=== PATIENT | female | born 1935 | race Hispanic/Latino ===

== ENCOUNTER 2020-08-29 13:28 | Inpatient (IN) | payer MEDICARE ==
[2020-08-29] MEDS ORDERED: MORPHINE 2 MG/1 ML INJ IV ONE (14:31)
--- NOTE | 2020-08-29 14:52 | Emergency Department Report ---
ED Lower Extremity HPI - General Stated Complaint: RT HIP PAIN/FALL Time Seen by Provider: 08/29/20 14:21 - History of Present Illness Initial Comments: 85-year-old female presents to ED with right hip pain. Patient states she was at the grocery store and was attempting to get a cart from one of the outside cart returns when she tripped over the silver plate on the ground landing on her right hip. Patient denies any numbness or tingling. She reports difficulty walking and bearing weight. MD Complaint: hip injury -: This afternoon Injury: Hip: Right Type of Injury: blunt Place: street/outdoors Severity: severe Improves With: immobilization Worsens With: weight bearing, movement, palpation Context: fall Associated Symptoms: unable to bear weight. denies: snap/pop sensation, numbness, tingling - Related Data Home Medications Medication Instructions Recorded Confirmed Last Taken Aspirin EC [Halfprin EC] 81 mg PO QDAY 08/05/13 08/29/20 Unknown Bimatoprost [Lumigan 0.01%] 1 drop OP QPM 08/05/13 08/29/20 Unknown Lisinopril [Zestril] 40 mg PO DAILY 08/05/13 08/29/20 Unknown Lovastatin [Altoprev] 20 mg PO QPM 08/05/13 08/29/20 Unknown Metoprolol [Lopressor] 100 mg PO DAILY 08/05/13 08/29/20 Unknown Metoprolol [Lopressor] 50 mg PO HS 09/12/13 08/29/20 Unknown hydroCHLOROthiazide [HCTZ] 25 mg PO DAILY 09/12/13 08/29/20 Unknown Rivaroxaban [Xarelto] 20 mg PO QDAY 08/29/20 08/29/20 Unknown Allergies Allergy/AdvReac Type Severity Reaction Status Date / Time No Known Allergies Allergy Unverified 08/05/13 13:50 ED Review of Systems ROS: Stated complaint: RT HIP PAIN/FALL Other details as noted in HPI Comment: All other systems reviewed and negative Musculoskeletal: as per HPI Neurological: denies: weakness, numbness, paresthesias ED Past Medical Hx - Past Medical History Hx Hypertension: Yes (2006 told to take metoprolol day of. On CBB and CHERYL-I) Hx Heart Attack/AMI: No (no reversible ischemia, and normal EF) Hx GERD: Yes (2003) Hx Liver Disease: No Hx Renal Disease: No Hx Arthritis: Yes - Social History Smoking Status: Never Smoker - Medications Home Medications: Home Medications Medication Instructions Recorded Confirmed Last Taken Type Aspirin EC [Halfprin EC] 81 mg PO QDAY 08/05/13 08/29/20 Unknown History Bimatoprost [Lumigan 0.01%] 1 drop OP QPM 08/05/13 08/29/20 Unknown History Lisinopril [Zestril] 40 mg PO DAILY 08/05/13 08/29/20 Unknown History Lovastatin [Altoprev] 20 mg PO QPM 08/05/13 08/29/20 Unknown History Metoprolol [Lopressor] 100 mg PO DAILY 08/05/13 08/29/20 Unknown History Metoprolol [Lopressor] 50 mg PO HS 09/12/13 08/29/20 Unknown History hydroCHLOROthiazide [HCTZ] 25 mg PO DAILY 09/12/13 08/29/20 Unknown History Rivaroxaban [Xarelto] 20 mg PO QDAY 08/29/20 08/29/20 Unknown History ED Physical Exam - General General appearance: alert, in no apparent distress - Head Head exam: Present: atraumatic, normocephalic - Eye Eye exam: Present: normal appearance, EOMI - ENT ENT exam: Present: mucous membranes moist - Neck Neck exam: Present: normal inspection - Respiratory Respiratory exam: Present: normal lung sounds bilaterally. Absent: respiratory distress - Cardiovascular Cardiovascular Exam: Present: regular rate, normal rhythm - GI/Abdominal GI/Abdominal exam: Present: soft. Absent: distended, tenderness - Extremities Exam Extremities exam: Present: other (Slight tenderness to right posterior hip; unable to flex hip or knee secondary to pain; sensation intact, able to move toes on right foot) - Neurological Exam Neurological exam: Present: alert, oriented X3 - Psychiatric Psychiatric exam: Present: normal affect, normal mood - Skin Skin exam: Present: warm, dry, intact, normal color ED Course Vital Signs 08/29/20 15:21 Respiratory 18 Rate O2 Sat by Pulse 100 Oximetry - Consultations Consultation #1: 08/29/20 15:[address] Swenson regarding patient's pubic rami fractures. States fractures are nonoperable. Will admit for physical therapy as patient is unable to bear weight. ED Lower Extremity MDM - Lab Data Result diagrams: 08/29/20 14:43 08/29/20 14:43 - Radiology Data Radiology results: report reviewed, image reviewed - Medical Decision Making 85-year-old female status post fall with right inferior and superior pubic rami fractures. Per Dr. Swenson, fractures are non-op. Patient is unable to bear weight secondary to pain. Patient will be admitted by Dr. Wolfe, hospitalist, for further evaluation. - Differential Diagnosis Hip fracture, contusion Critical care attestation.: If time is entered above; I have spent that time in minutes in the direct care of this critically ill patient, excluding procedure time. ED Disposition Clinical Impression: Fracture of superior ramus of right pubis, Fracture of right inferior pubic ramus Disposition: DC-09 OP ADMIT IP TO THIS HOSP Is pt being admited?: Yes Condition: Stable Time of Disposition: 15:58
[2020-08-29 15:10] LABS: Basophils % (Auto) 0.2 % (0.0-1.8); Eosinophils # (Auto) 0.1 K/mm3 (0.0-0.4); Eosinophils % (Auto) 0.7 % (0.0-4.3); Hematocrit 36.5 % (30.3-42.9); Hemoglobin 12.1 gm/dl (10.1-14.3); Lymphocytes # (Auto) 0.8 K/mm3 (1.2-5.4); Lymphocytes % (Auto) 5.1 % (13.4-35.0); Mean Corpuscular HGB Conc 33 % (30-34); Mean Corpuscular Volume 90 fl (79-97); Monocytes # (Auto) 0.8 K/mm3 (0.0-0.8); Platelet Count 254 K/mm3 (140-440); Red Blood Count 4.04 M/mm3 (3.65-5.03); Red Cell Distribution Width 15.7 % (13.2-15.2)
--- NOTE | 2020-08-29 15:19 | XRay Report ---
Right hip-2 views INDICATION: fall, pain. COMPARISON: None. IMPRESSION: Comminuted right-sided superior and inferior pubic rami fractures with surrounding soft tissue swelling. Mild underlying degenerative changes in both hips and at the pubic symphysis. Signer Name: Samuel Sage MD Signed: 08/29/2020 3:15 PM Workstation Name: [id number]
[2020-08-29 15:25] LABS: INR 1.57 (0.87-1.13)
[2020-08-29 15:26] LABS: Partial Thromboplastin Time 36.9 Sec. (24.2-36.6)
[2020-08-29 15:40] LABS: Blood Urea Nitrogen 20 mg/dL (7-17); Hemolysis Index 17
--- NOTE | 2020-08-29 15:57 | History and Physical Report ---
History of Present Illness Chief complaint: I fell down and hurt my hip History of present illness: 85 YO Female with HTN, GERD, [place], OA, Paroxysmal Atrial Fib on Therapeutic Anticoagulation with Xarelto and rate control with Metoprolol presents to ED for evaluation. Patient reported "I fell down and hurt my hip". Patient states that she was in her usual state of health and was ambulating independently while at the grocery store. Patient states that while attempting to get a shopping cart she accidentally tripped over a plate on the ground and landed on her right hip. Patient states that she experienced sudden pain in her right side and was unable to stand due to pain. Patient transported to [facility] via private vehicle for further care and evaluation of the aforementioned symptoms. The patient was seen and evaluated in the emergency department. All lab and imaging studies reviewed. Patient underwent pelvic x-ray and was found to have both superior and inferior pubic rami fractures, systemic inflammatory response syndrome, uncontrolled pain, as well as inability to bear weight on bilateral lower extr emities. Patient admitted to surgical floor. Orthopedic surgery service consulted in the emergency department. Patient denies fever, chills, chest pain, palpitation, productive cough, skin rash, recent ill contacts, dizziness, syncope, or known exposure to COVID-19. No prior admission for review. All medication listed at time of admission has been reconciled. Advanced care planning conducted in ED. Past History Past Medical History: atrial fib, arthritis, GERD, hypertension Past Surgical History: No surgical history, Other (Reviewed) Social history: . denies: smoking, alcohol abuse, prescription drug abuse Family history: hypertension Medications and Allergies Allergies Allergy/AdvReac Type Severity Reaction Status Date / Time No Known Allergies Allergy Unverified 08/05/13 13:50 Home Medications Medication Instructions Recorded Confirmed Last Taken Type Aspirin EC [Halfprin EC] 81 mg PO QDAY 08/05/13 08/29/20 Unknown History Bimatoprost [Lumigan 0.01%] 1 drop OP QPM 08/05/13 08/29/20 Unknown History Lisinopril [Zestril] 40 mg PO DAILY 08/05/13 08/29/20 Unknown History Lovastatin [Altoprev] 20 mg PO QPM 08/05/13 08/29/20 Unknown History Metoprolol [Lopressor] 100 mg PO DAILY 08/05/13 08/29/20 Unknown History Metoprolol [Lopressor] 50 mg PO HS 09/12/13 08/29/20 Unknown History hydroCHLOROthiazide [HCTZ] 25 mg PO DAILY 09/12/13 08/29/20 Unknown History Rivaroxaban [Xarelto] 20 mg PO QDAY 08/29/20 08/29/20 Unknown History Review of Systems Constitutional: no weight loss, no weight gain, no fever, no chills Ears, nose, mouth and throat: no ear pain, no tinnitis, no nasal discharge, no sinus pressure Breasts: no change in shape, no swelling, no mass Cardiovascular: no chest pain, no orthopnea, no palpitations, no rapid/irregular heart beat, no syncope, no lightheadedness, no shortness of breath, no dyspnea on exertion, no paroxysmal nocturnal dyspnea, no claudication, no phlebitis, no leg edema Respiratory: no cough, no cough with sputum, no excessive sputum, no hemoptysis, no shortness of breath Gastrointestinal: no abdominal pain, no nausea, no vomiting, no diarrhea, no constipation, no hematemesis Genitourinary Female: no pelvic pain, no flank pain, no dysuria, no urinary frequency, no urgency Rectal: no pain, no incontinence, no bleeding Musculoskeletal: no neck stiffness, no neck pain, no shooting arm pain, no arm numbness/tingling Integumentary: no rash, no redness, no wounds, no boils Neurological: no head injury, no transient paralysis, no paralysis, no weakness, no parathesias, no tingling, no seizures, no syncope Psychiatric: no anxiety, no memory loss, no sleep disturbances, no insomnia, no change in appetite, no change in libido Endocrine: no cold intolerance, no heat intolerance, no excessive thirst, no polyuria, no nocturia, no excessive sweating, no flushing Hematologic/Lymphatic: no easy bruising, no easy bleeding, no lymphedema Allergic/Immunologic: no urticaria, no persistent infections Exam - Constitutional Vitals: Temp Pulse Resp BP Pulse Ox 18 100 08/29/20 15:21 08/29/20 15:21 General appearance: Present: mild distress - EENT Eyes: Present: PERRL ENT: hearing intact, clear oral mucosa - Neck Neck: Present: supple, normal ROM - Respiratory Respiratory effort: normal Respiratory: bilateral: CTA - Cardiovascular Heart Sounds: Present: S1 & S2. Absent: rub, click - Extremities Extremities: pulses symmetrical, No edema Peripheral Pulses: within normal limits - Abdominal General gastrointestinal: Present: soft, non-tender, non-distended, normal bowel sounds Female genitourinary: Present: normal - Integumentary Integumentary: Present: clear, warm, dry - Musculoskeletal Musculoskeletal: strength equal bilaterally, other (Pain with pelvic mobility, lower extremity movement) - Psychiatric Psychiatric: appropriate mood/affect, intact judgment & insight - Neurologic Neurologic: CNII-XII intact, moves all extremities Results - Labs CBC & Chem 7: 08/29/20 14:43 08/29/20 14:43 Labs: Abnormal lab results 08/29/20 08/29/20 08/29/20 Range/Units 14:43 14:43 14:43 WBC 16.3 H (4.5-11.0) K/mm3 RDW 15.7 H (13.2-15.2) % Lymph % (Auto) 5.1 L (13.4-35.0) % Lymph # (Auto) 0.8 L (1.2-5.4) K/mm3 Seg Neutrophils % 89.0 H (40.0-70.0) % Seg Neutrophils # 14.5 H (1.8-7.7) K/mm3 PT 19.2 H (12.2-14.9) Sec. INR 1.57 H (0.87-1.13) APTT 36.9 H (24.2-36.6) Sec. Chloride 95.9 L (98-107) mmol/L BUN 20 H (7-17) mg/dL Glucose 107 H (65-100) mg/dL Assessment and Plan - Patient Problems (1) Fracture of right inferior pubic ramus Current Visit: Yes Status: Acute Qualifiers: Encounter type: initial encounter Plan to address problem: Orthopedic surgery service consulted, pain control, supportive care, further care as per orthopedic surgery team (2) Fracture of superior ramus of right pubis Current Visit: Yes Status: Acute Qualifiers: Encounter type: initial encounter Plan to address problem: Orthopedic surgery service consulted, pain control, supportive care, further care as per orthopedic surgery team (3) Debility Current Visit: Yes Status: Acute Plan to address problem: Physical therapy consulted, pain control, supportive care (4) Uncontrolled pain Current Visit: Yes Status: Acute Plan to address problem: Pain control as per pain protocol, nursing assessment as per routine. (5) Paroxysmal atrial fibrillation Current Visit: Yes Status: Acute Plan to address problem: Continue therapeutic anticoagulation, continue rate control, supportive care. Remote telemetry. (6) DVT prophylaxis Current Visit: Yes Status: Acute Plan to address problem: SCD to bilateral lower extremities while in bed, patient is nonambulatory, c ontinue therapeutic anticoagulation (7) Advance care planning Current Visit: Yes Status: Acute Plan to address problem: Disease education conducted, care plan discussed, diagnosis discussed, prognosis discussed, patient knowledges understanding and agree with care plan, +30 minutes.
[2020-08-29] MEDS ORDERED: ACETAMINOPHEN 325 MG TAB PO PRN (16:01)
[2020-08-29] MEDS ORDERED: ALBUTEROL 2.5 MG/3 ML NEBU IH PRN (16:01)
[2020-08-29 16:19] LABS: Calcium 8.8 mg/dL (8.4-10.2)
[2020-08-29 16:21] LABS: BUN/Creatinine Ratio 29
[2020-08-29] MEDS ORDERED: SODIUM CHLORIDE 0.9% 1000 ML 1,000 ML IV SCH (17:15)
[2020-08-29] MEDS ORDERED: LATANOPROST 0.005% OPHTH SOLN 2.5 ML OU SCH (18:00)
[2020-08-29] MEDS ORDERED: NON-FORMULARY EACH (Bimatoprost [Lumigan 0.01%] 5 ML Drops) OP SCH (18:00)
[2020-08-29] MEDS ORDERED: NON-FORMULARY EACH (Lovastatin [Altoprev] 20 MG Tab.Er.24h) PO SCH (18:00)
[2020-08-29 18:58] LABS: Bilirubin,Urine NEG (Negative); Blood,Urine NEG (Negative); Color,Urine Yellow (Yellow); Protein,Urine <15 mg/dL mg/dL (Negative); Urobilinogen,Urine < 2.0 mg/dL (<2.0)
[2020-08-29] MEDS ORDERED: cefTRIAXone/NS 2 GM/100 ML 2 GM/100 ML BAG IV ONE (20:35)
[2020-08-29] MEDS ORDERED: METOPROLOL TARTRATE 50 MG TAB PO SCH (22:00)
[2020-08-29] MEDS: PRAVASTATIN 20 MG TAB PO SCH (22:03)
[2020-08-29] MEDS: oxyCODONE /ACETAMINOPHEN 5-325MG TAB PO PRN (22:03)
[2020-08-30 07:41] LABS: Basophils # (Auto) 0.1 K/mm3 (0.0-0.1); Basophils % (Auto) 0.4 % (0.0-1.8); Eosinophils # (Auto) 0.2 K/mm3 (0.0-0.4); Eosinophils % (Auto) 1.5 % (0.0-4.3); Hematocrit 32.5 % (30.3-42.9); Hemoglobin 10.7 gm/dl (10.1-14.3); Lymphocytes # (Auto) 0.9 K/mm3 (1.2-5.4); Mean Corpuscular HGB Conc 33 % (30-34); Mean Corpuscular Volume 89 fl (79-97); Monocytes # (Auto) 0.9 K/mm3 (0.0-0.8); Platelet Count 243 K/mm3 (140-440); Red Blood Count 3.67 M/mm3 (3.65-5.03); Red Cell Distribution Width 15.5 % (13.2-15.2)
[2020-08-30 08:03] LABS: Blood Urea Nitrogen 18 mg/dL (7-17); Calcium 8.3 mg/dL (8.4-10.2); Hemolysis Index 7
[2020-08-30 08:04] LABS: BUN/Creatinine Ratio 30
[2020-08-30] MEDS: hydroCHLOROthiazide 25 MG TAB PO SCH (09:01)
[2020-08-30] MEDS: ASPIRIN EC 81 MG TAB PO SCH (09:01)
[2020-08-30] MEDS: LISINOPRIL 40 MG TAB PO SCH (09:02)
[2020-08-30] MEDS: METOPROLOL SUCCINATE XL 50 MG TAB PO SCH (09:02)
[2020-08-30] MEDS ORDERED: NON-FORMULARY EACH (Rivaroxaban 20 MG Tablet) PO SCH (10:00)
[2020-08-30] MEDS ORDERED: METOPROLOL TARTRATE 100 MG TAB PO SCH (10:00)
[2020-08-30] MEDS: RIVAROXABAN 20 MG TAB PO SCH (11:26)
[2020-08-30] MEDS ORDERED: hydrALAZINE 20 MG/1 ML INJ IV ONE (13:00)
[2020-08-30] MEDS: oxyCODONE /ACETAMINOPHEN 5-325MG TAB PO PRN ×2 (13:22→20:17)
[2020-08-30] MEDS: ONDANSETRON 4 MG/2 ML INJ IV PRN (13:22)
--- NOTE | 2020-08-30 16:35 | Progress Note ---
Assessment and Plan - Patient Problems (1) Fracture of right inferior pubic ramus Current Visit: Yes Status: Acute Qualifiers: Encounter type: initial encounter Plan to address problem: Orthopedic surgery service consulted, pain control, supportive care, further care as per orthopedic surgery team (2) Fracture of superior ramus of right pubis Current Visit: Yes Status: Acute Qualifiers: Encounter type: initial encounter Plan to address problem: Orthopedic surgery service consulted, pain control, supportive care, further care as per orthopedic surgery team (3) Debility Current Visit: Yes Status: Acute Plan to address problem: Physical therapy consulted, pain control, supportive care (4) Uncontrolled pain Current Visit: Yes Status: Acute Plan to address problem: Pain control as per pain protocol, nursing assessment as per routine. (5) Paroxysmal atrial fibrillation Current Visit: Yes Status: Acute Plan to address problem: Continue therapeutic anticoagulation, continue rate control, supportive care. Remote telemetry. (6) DVT prophylaxis Current Visit: Yes Status: Acute Plan to address problem: SCD to bilateral lower extremities while in bed, patient is nonambulatory, continue therapeutic anticoagulation (7) Advance care planning Current Visit: Yes Status: Acute Plan to address problem: Disease education conducted, care plan discussed, diagnosis discussed, prognosis discussed, patient knowledges understanding and agree with care plan, +30 minutes. Subjective Date of service: 08/30/20 Principal diagnosis: Rt Hip fx Interval history: 85 YO Female with HTN, GERD, [place], OA, Paroxysmal Atrial Fib on Therapeutic Anticoagulation with Xarelto and rate control with Metoprolol presents to ED for evaluation. Patient reported "I fell down and hurt my hip". Patient states that she was in her usual state of health and was ambulating independently while at the grocery store. Patient states that while attempting to get a shopping cart she accidentally tripped over a plate on the ground and landed on her right hip. Patient states that she experienced sudden pain in her right side and was unable to stand due to pain. Patient transported to [facility] via private vehicle for further care and evaluation of the aforementioned symptoms. The patient was seen and evaluated in the emergency department. All lab and imaging studies reviewed. Patient underwent pelvic x-ray and was found to have both superior and inferior pubic rami fractures, systemic inflammatory response syndrome, uncontrolled pain, as well as inability to bear weight on bilateral lower extremities. Patient admitted to surgical floor. Orthopedic surgery service consulted in the emergency department. Patient denies fever, chills, chest pain, palpitation, productive cough, skin rash, recent ill contacts, dizziness, syncope, or known exposure to COVID-19. No prior admission for review. All medication listed at time of admission has been reconciled. Advanced care planning conducted in ED. 08/30/20 Pain Rt hip Son at bedside Updated him about mothers condition Objective - Constitutional Vitals: Vital Signs - 12hr 08/30/20 08/30/20 08/30/20 04:58 07:06 08:54 Temperature 97.9 F 97.7 F Pulse Rate 77 121 H Respiratory 18 16 Rate Blood Pressure 154/76 175/79 O2 Sat by Pulse 93 94 96 Oximetry 08/30/20 08/30/20 08/30/20 09:02 11:55 12:36 Temperature 97.9 F Pulse Rate 121 H 108 H 108 H Respiratory 16 Rate Blood Pressure 175/79 183/103 183/103 O2 Sat by Pulse 90 Oximetry General appearance: Present: no acute distress, well-nourished - EENT Eyes: PERRL, EOM intact ENT: hearing intact, clear oral mucosa Ears: bilateral: normal - Neck Neck: supple, normal ROM - Respiratory Respiratory effort: normal Respiratory: bilateral: CTA - Breasts Breasts: normal - Cardiovascular Heart rate: 78 Rhythm: regular Heart Sounds: Present: S1 & S2. Absent: gallop, rub Extremities: pulses intact, No edema, normal color, Full ROM, abnormal (Decreased ROM at rt Hip) - Gastrointestinal General gastrointestinal: Present: soft, non-tender, non-distended, normal bowel sounds - Genitourinary Female genitourinary: normal - Integumentary Integumentary: clear, warm, dry - Musculoskeletal Musculoskeletal: 1, strength equal bilaterally - Neurologic Neurologic: moves all extremities - Psychiatric Psychiatric: memory intact, appropriate mood/affect, intact judgment & insight - Labs CBC & Chem 7: 08/30/20 06:24 08/30/20 06:24 Labs: Abnormal lab results 08/30/20 08/30/20 Range/Units 06:24 06:24 WBC 13.5 H (4.5-11.0) K/mm3 RDW 15.5 H (13.2-15.2) % Lymph % (Auto) 7.0 L (13.4-35.0) % Lymph # (Auto) 0.9 L (1.2-5.4) K/mm3 [place] # (Auto) 0.9 H (0.0-0.8) K/mm3 Seg Neutrophils % 84.1 H (40.0-70.0) % Seg Neutrophils # 11.3 H (1.8-7.7) K/mm3 Sodium 136 L (137-145) mmol/L Chloride 95.6 L (98-107) mmol/L BUN 18 H (7-17) mg/dL Calcium 8.3 L (8.4-10.2) mg/dL
[2020-08-30] MEDS: LATANOPROST 0.005% OPHTH SOLN 2.5 ML OU SCH (20:18)
[2020-08-30] MEDS: PRAVASTATIN 20 MG TAB PO SCH (21:47)
[2020-08-31] MEDS: oxyCODONE /ACETAMINOPHEN 5-325MG TAB PO PRN (02:03)
[2020-08-31] MEDS: RIVAROXABAN 20 MG TAB PO SCH (10:38)
[2020-08-31] MEDS: LISINOPRIL 40 MG TAB PO SCH (10:39)
[2020-08-31] MEDS: hydroCHLOROthiazide 25 MG TAB PO SCH (10:40)
[2020-08-31] MEDS: ASPIRIN EC 81 MG TAB PO SCH (10:40)
[2020-08-31] MEDS: METOPROLOL SUCCINATE XL 50 MG TAB PO SCH (11:39)
[2020-08-31] MEDS: HYDROmorphone 1 MG/1 ML INJ IV PRN ×2 (14:41→21:55)
--- NOTE | 2020-08-31 17:07 | Consultation ---
History of Present Illness - [facility] Consult date: 08/31/20 Consult reason: fracture History of present illness: 85-year-old female presented to the ED with right hip pain 08/29/20. Patient states she was at the grocery store and was attempting to get a cart from one of the outside cart returns when she tripped over the silver plate on the ground landing on her right hip. Patient denies any numbness or tingling. She reports difficulty walking and bearing weight. plain xrays taken in the ED revealed right pubic rami fractures... Past History Past Medical History: atrial fib, arthritis, GERD, hypertension Past Surgical History: No surgical history, Other (Reviewed) Social history: . denies: smoking, alcohol abuse, prescription drug abuse Family history: hypertension Medications and Allergies Allergies Allergy/AdvReac Type Severity Reaction Status Date / Time No Known Allergies Allergy Unverified 08/05/13 13:50 Home Medications Medication Instructions Recorded Confirmed Last Taken Type Aspirin EC [Halfprin EC] 81 mg PO QDAY 08/05/13 08/29/20 Unknown History Bimatoprost [Lumigan 0.01%] 1 drop OP QPM 08/05/13 08/29/20 Unknown History Lisinopril [Zestril] 40 mg PO DAILY 08/05/13 08/29/20 Unknown History Lovastatin [Altoprev] 20 mg PO QPM 08/05/13 08/29/20 Unknown History Metoprolol [Lopressor] 100 mg PO DAILY 08/05/13 08/29/20 Unknown History Metoprolol [Lopressor] 50 mg PO HS 09/12/13 08/29/20 Unknown History hydroCHLOROthiazide [HCTZ] 25 mg PO DAILY 09/12/13 08/29/20 Unknown History Rivaroxaban [Xarelto] 20 mg PO QDAY 08/29/20 08/29/20 Unknown History Active Meds: Active Medications Acetaminophen (Acetaminophen 325 Mg Tab) 650 mg PO Q4H PRN PRN Reason: Pain MILD(1-3)/Fever >100.5/MCKEON Albuterol (Albuterol 2.5 Mg/3 Ml Nebu) 2.5 mg IH Q4HRT PRN PRN Reason: Shortness Of Breath Aspirin (Aspirin Ec 81 Mg Tab) 81 mg PO QDAY [facility] Last Admin: 08/31/20 10:40 Dose: 81 mg Documented by: Hydrochlorothiazide (Hydrochlorothiazide 25 Mg Tab) 25 mg PO DAILY [facility] Last Admin: 08/31/20 10:40 Dose: 25 mg Documented by: Hydromorphone HCl (Hydromorphone 1 Mg/1 Ml Inj) 0.5 mg IV Q3H PRN PRN Reason: Pain , Severe (7-10) Last Admin: 08/31/20 14:41 Dose: 0.5 mg Documented by: Sodium Chloride (Nacl 0.9% 1000 Ml) 1,000 mls @ 42 mls/hr IV DIRECT [facility] Last Admin: 08/30/20 10:58 Dose: 42 mls/hr Documented by: Latanoprost (Latanoprost 0.005% Ophth Soln 2.5 Ml) 1 drops OU 2000 [facility] Last Admin: 08/30/20 20:18 Dose: 1 drops Documented by: Lisinopril (Lisinopril 40 Mg Tab) 40 mg PO DAILY [facility] Last Admin: 08/31/20 10:39 Dose: 40 mg Documented by: Metoprolol Succinate (Metoprolol Succinate Xl 50 Mg Tab) 50 mg PO QDAY [facility] Last Admin: 08/31/20 11:39 Dose: 50 mg Documented by: Ondansetron HCl (Ondansetron 4 Mg/2 Ml Inj) 4 mg IV Q8H PRN PRN Reason: Nausea And Vomiting Last Admin: 08/30/20 13:22 Dose: 4 mg Documented by: Oxycodone/Acetaminophen (Oxycodone /Acetaminophen 5-325mg Tab) 1 tab PO Q6H PRN PRN Reason: Pain, Moderate (4-6) Last Admin: 08/31/20 02:03 Dose: 1 tab Documented by: Pravastatin Sodium (Pravastatin 20 Mg Tab) 20 mg PO QHS [facility] Last Admin: 08/30/20 21:47 Dose: 20 mg Documented by: Rivaroxaban (Rivaroxaban 20 Mg Tab) 20 mg PO QDAY [facility] Last Admin: 08/31/20 10:38 Dose: 20 mg Documented by: Sodium Chloride (Sodium Chloride 0.9% 10 Ml Flush Syringe) 10 ml IV BID [facility] Last Admin: 08/31/20 14:40 Dose: 10 ml Documented by: Sodium Chloride (Sodium Chloride 0.9% 10 Ml Flush Syringe) 10 ml IV PRN PRN PRN Reason: LINE FLUSH Physical Examination - Physical exam Narrative exam: pelvis- tender at right groin, decreased active RoM, no limb length shortening noted Assessment and Plan stable pelvic fracture PT for gait training
[2020-08-31] MEDS: PRAVASTATIN 20 MG TAB PO SCH (22:00)
[2020-08-31] MEDS: LATANOPROST 0.005% OPHTH SOLN 2.5 ML OU SCH (22:03)
--- NOTE | 2020-09-01 02:28 | Progress Note ---
Assessment and Plan - Patient Problems (1) Rt Pelvic Fracture/right inferior pubic ramus Current Visit: Yes Status: Acute Qualifiers: Encounter type: initial encounter Plan to address problem: Orthopedic surgery consult appreciated stable pelvic fracture Gait training (2) Fracture of superior ramus of right pubis Current Visit: Yes Status: Acute Qualifiers: Encounter type: initial encounter Plan to address problem: Orthopedic surgery consult appreciated stable pelvic fracture Gait training (3) Debility Current Visit: Yes Status: Acute Plan to address problem: Physical therapy consulted, pain control, supportive care (4) Uncontrolled pain Current Visit: Yes Status: Acute Plan to address problem: Pain control as per pain protocol, nursing assessment as per routine. (5) Paroxysmal atrial fibrillation Current Visit: Yes Status: Acute Plan to address problem: Continue therapeutic anticoagulation, continue rate control, supportive care. Remote telemetry. (6) DVT prophylaxis Current Visit: Yes Status: Acute Plan to address problem: SCD to bilateral lower extremities while in bed, patient is nonambulatory, continue therapeutic anticoagulation (7) Advance care planning Current Visit: Yes Status: Acute Plan to address problem: Disease education conducted, care plan discussed, diagnosis discussed, prognosis discussed, patient knowledges understanding and agree with care plan, +30 minutes. Discharge home when Ortho clears Subjective Date of service: 08/31/20 Principal diagnosis: pelvic fracture Interval history: 85 YO Female with HTN, GERD, MA, OA, Paroxysmal Atrial Fib on Therapeutic Anticoagulation with Xarelto and rate control with Metoprolol presents to ED for evaluation. Patient reported "I fell down and hurt my hip". Patient states that she was in her usual state of health and was ambulating independently while at the grocery store. Patient states that while attempting to get a shopping cart she accidentally tripped over a plate on the ground and landed on her right hip. Patient states that she experienced sudden pain in her right side and was unable to stand due to pain. Patient transported to [facility] via private vehicle for further care and evaluation of the aforementioned symptoms. The patient was seen and evaluated in the emergency department. All lab and imaging studies reviewed. Patient underwent pelvic x-ray and was found to have both superior and inferior pubic rami fractures, systemic inflammatory response syndrome, uncontrolled pain, as well as inability to bear weight on bilateral lower extremities. Patient admitted to surgical floor. Orthopedic surgery service c onsulted in the emergency department. Patient denies fever, chills, chest pain, palpitation, productive cough, skin rash, recent ill contacts, dizziness, syncope, or known exposure to COVID-19. No prior admission for review. All medication listed at time of admission has been reconciled. Advanced care planning conducted in ED. 08/30/20 Pain Rt hip Son at bedside Updated him about mothers condition 08/31/20 Pain Rt Hip decreased ROM Objective - Constitutional Vitals: Vital Signs - 12hr 08/31/20 08/31/20 08/31/20 16:37 19:23 23:50 Temperature 98.5 F 98.5 F 98.3 F Pulse Rate 113 H 99 H 87 Respiratory 18 16 16 Rate Blood Pressure 128/57 149/74 135/78 O2 Sat by Pulse 91 94 92 Oximetry General appearance: Present: no acute distress, well-nourished - EENT Eyes: PERRL, EOM intact ENT: hearing intact, clear oral mucosa Ears: bilateral: normal - Neck Neck: supple, normal ROM - Respiratory Respiratory effort: normal Respiratory: bilateral: CTA - Breasts Breasts: normal - Cardiovascular Rhythm: regular Heart Sounds: Present: S1 & S2. Absent: gallop, rub Extremities: pulses intact, No edema, normal color, Full ROM, abnormal (Decreased ROM at Rt hip) Extremity abnormal: other (Drcreased ROM at Rt Hip) - Gastrointestinal General gastrointestinal: Present: soft, non-tender, non-distended, normal bowel sounds - Genitourinary Female genitourinary: normal - Integumentary Integumentary: clear, warm, dry - Musculoskeletal Musculoskeletal: 1, strength equal bilaterally - Neurologic Neurologic: moves all extremities - Psychiatric Psychiatric: memory intact, appropriate mood/affect, intact judgment & insight - Labs CBC & Chem 7: 08/30/20 06:24 08/30/20 06:24
[2020-09-01] MEDS: HYDROmorphone 1 MG/1 ML INJ IV PRN ×2 (04:02→21:25)
[2020-09-01] MEDS: oxyCODONE /ACETAMINOPHEN 5-325MG TAB PO PRN (11:11)
[2020-09-01] MEDS: METOPROLOL SUCCINATE XL 50 MG TAB PO SCH (11:11)
[2020-09-01] MEDS: LISINOPRIL 40 MG TAB PO SCH (11:12)
[2020-09-01] MEDS: ASPIRIN EC 81 MG TAB PO SCH (11:12)
[2020-09-01] MEDS: hydroCHLOROthiazide 25 MG TAB PO SCH (11:13)
[2020-09-01] MEDS: RIVAROXABAN 20 MG TAB PO SCH (12:15)
--- NOTE | 2020-09-01 13:22 | Progress Note ---
Assessment and Plan Assessment and plan: -- Rt Pelvic Fracture/right inferior pubic ramus Current Visit: Yes Status: Acute Orthopedic surgery evaluation noted and appreciated stable pelvic fracture, no surgical intervention PT and gait training --Fracture of superior ramus of right pubis Current Visit: Yes Status: Acute stable pelvic fracture, Gait training and PT Ortho evaluated Ortho evaluated, no intervention needed --General debility Current Visit: Yes Status: Acute Advanced age , fall fracture bilateral right pubic rami Pain management , PT , gait training , Ortho evaluated --Uncontrolled pain Current Visit: Yes Status: Acute Pain control as per pain protocol, nursing assessment as per routine. -- Paroxysmal atrial fibrillation Current Visit: Yes Status: Acute Continue therapeutic anticoagulation, High risk with recurrent falls, check with cardiology if needed -- DVT prophylaxis Current Visit: Yes Status: Acute . Patient is on Eliquis --Full CODE STATUS ; --Advance care planning Current Visit: Yes Status: Acute . Plan of care reviewed with the patient, and her nurse, I discussed with patient's [id number] PT recommend acute rehab placement. [place] acute rehab placement consultation Closely monitor the patient and adjust the management as needed History Interval history: I seen and examined the patient at the bedside Patient's chart and medications reviewed Patient complains of some pain Vital signs reviewed Hospitalist Physical - Constitutional Vitals: Temp Pulse Resp BP Pulse Ox 98.4 F 120 H 18 156/69 93 09/01/20 11:23 09/01/20 11:23 09/01/20 11:23 09/01/20 11:23 09/01/20 11:23 General appearance: Present: no acute distress, well-nourished - EENT Eyes: Present: PERRL, EOM intact - Neck Neck: Present: supple, normal ROM - Respiratory Respiratory effort: normal Respiratory: bilateral: diminished, negative: rales, rhonchi, wheezing - Cardiovascular Rhythm: regular Heart Sounds: Present: S1 & S2 - Extremities Extremities: no ischemia, No edema - Abdominal General gastrointestinal: soft, non-tender, non-distended, normal bowel sounds - Integumentary Integumentary: Present: clear, warm - Psychiatric Psychiatric: appropriate mood/affect, cooperative - Neurologic Neurologic: CNII-XII intact, moves all extremities Results - Labs CBC & Chem 7: 08/30/20 06:24 08/30/20 06:24 Labs: Laboratory Last Values WBC 13.5 K/mm3 (4.5-11.0) H 08/30/20 06:24 RBC 3.67 M/mm3 (3.65-5.03) 08/30/20 06:24 Hgb 10.7 gm/dl (10.1-14.3) 08/30/20 06:24 Hct 32.5 % (30.3-42.9) 08/30/20 06:24 MCV 89 fl (79-97) 08/30/20 06:24 MCH 29 pg (28-32) 08/30/20 06:24 MCHC 33 % (30-34) 08/30/20 06:24 RDW 15.5 % (13.2-15.2) H 08/30/20 06:24 Plt Count 243 K/mm3 (140-440) 08/30/20 06:24 Lymph % (Auto) 7.0 % (13.4-35.0) L 08/30/20 06:24 [place] % (Auto) 7.0 % (0.0-7.3) 08/30/20 06:24 Eos % (Auto) 1.5 % (0.0-4.3) 08/30/20 06:24 Baso % (Auto) 0.4 % (0.0-1.8) 08/30/20 06:24 Lymph # (Auto) 0.9 K/mm3 (1.2-5.4) L 08/30/20 06:24 [place] # (Auto) 0.9 K/mm3 (0.0-0.8) H 08/30/20 06:24 Eos # (Auto) 0.2 K/mm3 (0.0-0.4) 08/30/20 06:24 Baso # (Auto) 0.1 K/mm3 (0.0-0.1) 08/30/20 06:24 Seg Neutrophils % 84.1 % (40.0-70.0) H 08/30/20 06:24 Seg Neutrophils # 11.3 K/mm3 (1.8-7.7) H 08/30/20 06:24 PT 19.2 Sec. (12.2-14.9) H 08/29/20 14:43 INR 1.57 (0.87-1.13) H 08/29/20 14:43 APTT 36.9 Sec. (24.2-36.6) H 08/29/20 14:43 Sodium 136 mmol/L (137-145) L 08/30/20 06:24 Potassium 4.1 mmol/L (3.6-5.0) 08/30/20 06:24 Chloride 95.6 mmol/L (98-107) L 08/30/20 06:24 Carbon Dioxide 30 mmol/L (22-30) 08/30/20 06:24 Anion Gap 15 mmol/L 08/30/20 06:24 BUN 18 mg/dL (7-17) H 08/30/20 06:24 Creatinine 0.6 mg/dL (0.6-1.2) 08/30/20 06:24 Estimated GFR > 60 ml/min 08/30/20 06:24 BUN/Creatinine Ratio 30 % 08/30/20 06:24 Glucose 100 mg/dL (65-100) 08/30/20 06:24 Calcium 8.3 mg/dL (8.4-10.2) L 08/30/20 06:24 Urine Color Yellow (Yellow) 08/29/20 Unknown Urine Turbidity Clear (Clear) 08/29/20 Unknown Urine pH 6.0 (5.0-7.0) 08/29/20 Unknown Ur Specific [place] 1.014 (1.003-1.030) 08/29/20 Unknown Urine Protein <15 mg/dl mg/dL (Negative) 08/29/20 Unknown Urine Glucose (UA) Neg mg/dL (Negative) 08/29/20 Unknown Urine Ketones Tr mg/dL (Negative) 08/29/20 Unknown Urine Blood Neg (Negative) 08/29/20 Unknown Urine Nitrite Pos (Negative) 08/29/20 Unknown Urine Bilirubin Neg (Negative) 08/29/20 Unknown Urine Urobilinogen < 2.0 mg/dL (<2.0) 08/29/20 Unknown Ur Leukocyte Esterase Neg (Negative) 08/29/20 Unknown Urine WBC (Auto) 2.0 /HPF (0.0-6.0) 08/29/20 Unknown Urine RBC (Auto) 2.0 /HPF (0.0-6.0) 08/29/20 Unknown U Epithel Cells (Auto) 1.0 /HPF (0-13.0) 08/29/20 Unknown Lozano/IV: Voiding Method External Female Catheter Active Medications - Current Medications Current Medications: Generic Name Dose Route Start Last Admin Trade Name Freq PRN Reason Stop Dose Admin Acetaminophen 650 mg 08/29/20 16:01 Acetaminophen 325 Mg Tab PO Q4H PRN Pain MILD(1-3)/Fever >100.5/MCKEON Albuterol 2.5 mg 08/29/20 16:01 Albuterol 2.5 Mg/3 Ml Nebu IH Q4HRT PRN Shortness Of Breath Aspirin 81 mg 08/30/20 10:00 09/01/20 11:12 Aspirin Ec 81 Mg Tab PO 81 mg QDAY MAGNUS Administration Hydrochlorothiazide 25 mg 08/30/20 10:00 09/01/20 11:13 Hydrochlorothiazide 25 Mg Tab PO 25 mg DAILY MAGNUS Administration Hydromorphone HCl 0.5 mg 08/29/20 16:01 09/01/20 04:02 Hydromorphone 1 Mg/1 Ml Inj IV 0.5 mg Q3H PRN Administration Pain , Severe (7-10) Sodium Chloride 1,000 mls @ 42 mls/hr 08/29/20 17:15 08/30/20 10:58 Nacl 0.9% 1000 Ml IV 42 mls/hr DIRECT MAGNUS Administration Latanoprost 1 drops 08/30/20 20:00 08/31/20 22:03 Latanoprost 0.005% Ophth Soln 2.5 Ml OU 1 drops 2000 MAGNUS Administration Lisinopril 40 mg 08/30/20 10:00 09/01/20 11:12 Lisinopril 40 Mg Tab PO 40 mg DAILY MAGNUS Administration Metoprolol Succinate 50 mg 08/30/20 10:00 09/01/20 11:11 Metoprolol Succinate Xl 50 Mg Tab PO 50 mg QDAY MAGNUS Administration Ondansetron HCl 4 mg 08/29/20 16:01 08/30/20 13:22 Ondansetron 4 Mg/2 Ml Inj IV 4 mg Q8H PRN Administration Nausea And Vomiting Oxycodone/Acetaminophen 1 tab 08/29/20 16:01 09/01/20 11:11 Oxycodone /Acetaminophen 5-325mg Tab PO 1 tab Q6H PRN Administration Pain, Moderate (4-6) Pravastatin Sodium 20 mg 08/29/20 22:00 08/31/20 22:00 Pravastatin 20 Mg Tab PO 20 mg QHS MAGNUS Administration Rivaroxaban 20 mg 08/30/20 10:00 09/01/20 12:15 Rivaroxaban 20 Mg Tab PO 20 mg QDAY MAGNUS Administration Sodium Chloride 10 ml 08/29/20 22:00 09/01/20 11:13 Sodium Chloride 0.9% 10 Ml Flush Syringe IV 10 ml BID MAGNUS Administration Sodium Chloride 10 ml 08/29/20 16:01 Sodium Chloride 0.9% 10 Ml Flush Syringe IV PRN PRN LINE FLUSH
[2020-09-01] MEDS: LATANOPROST 0.005% OPHTH SOLN 2.5 ML OU SCH (21:23)
[2020-09-01] MEDS: PRAVASTATIN 20 MG TAB PO SCH (22:52)
[2020-09-02] MEDS: HYDROmorphone 1 MG/1 ML INJ IV PRN ×3 (03:36→11:48)
[2020-09-02] MEDS: METOPROLOL SUCCINATE XL 50 MG TAB PO SCH (11:48)
[2020-09-02] MEDS: ASPIRIN EC 81 MG TAB PO SCH (11:48)
[2020-09-02] MEDS: hydroCHLOROthiazide 25 MG TAB PO SCH (11:48)
[2020-09-02] MEDS: LISINOPRIL 40 MG TAB PO SCH (11:49)
[2020-09-02] MEDS: RIVAROXABAN 20 MG TAB PO SCH (11:55)
--- NOTE | 2020-09-02 14:42 | Progress Note ---
Assessment and Plan Assessment and plan: -- Rt Pelvic Fracture/right inferior pubic ramus Current Visit: Yes Status: Acute Orthopedic surgery evaluation noted and appreciated stable pelvic fracture, no surgical intervention PT and gait training --Fracture of superior ramus of right pubis Current Visit: Yes Status: Acute stable pelvic fracture, Gait training and PT Ortho evaluated Ortho evaluated, no intervention needed --General debility Current Visit: Yes Status: Acute Advanced age , fall fracture bilateral right pubic rami Pain management , PT , gait training , Ortho evaluated --Uncontrolled pain Current Visit: Yes Status: Acute Pain control as per pain protocol, nursing assessment as per routine. -- Paroxysmal atrial fibrillation Current Visit: Yes Status: Acute Continue therapeutic anticoagulation, High risk with recurrent falls, check with cardiology if needed -- DVT prophylaxis Current Visit: Yes Status: Acute . Patient is on Eliquis --Full CODE STATUS ; --Advance care planning Current Visit: Yes Status: Acute . Plan of care reviewed with the patient, and her nurse, I discussed with patient's [id number] Awaiting acute/subacute rehab placement PT recommend acute rehab placement. Case management for DC planning, [facility] willing to take pending availability of beds Closely monitor the patient and adjust the management as needed History Interval history: I have seen and examined the patient at the bedside Patient feels better still has some pain PT OT evaluated the patient recommend subacute rehab placement Vital signs noted Hospitalist Physical - Constitutional Vitals: Temp Pulse Resp BP Pulse Ox 97.6 F 94 H 16 165/89 94 09/02/20 11:47 09/02/20 11:47 09/02/20 11:47 09/02/20 11:47 09/02/20 11:47 General appearance: Present: no acute distress, well-nourished - EENT Eyes: Present: PERRL, EOM intact - Neck Neck: Present: supple, normal ROM - Respiratory Respiratory effort: normal Respiratory: bilateral: diminished, negative: rales, rhonchi, wheezing - Cardiovascular Rhythm: regular Heart Sounds: Present: S1 & S2 - Extremities Extremities: no ischemia, No edema - Abdominal General gastrointestinal: soft, non-tender, non-distended, normal bowel sounds - Integumentary Integumentary: Present: clear, warm - Psychiatric Psychiatric: appropriate mood/affect, cooperative - Neurologic Neurologic: moves all extremities Results - Labs CBC & Chem 7: 08/30/20 06:24 08/30/20 06:24 Labs: Laboratory Last Values WBC 13.5 K/mm3 (4.5-11.0) H 08/30/20 06:24 RBC 3.67 M/mm3 (3.65-5.03) 08/30/20 06:24 Hgb 10.7 gm/dl (10.1-14.3) 08/30/20 06:24 Hct 32.5 % (30.3-42.9) 08/30/20 06:24 MCV 89 fl (79-97) 08/30/20 06:24 MCH 29 pg (28-32) 08/30/20 06:24 MCHC 33 % (30-34) 08/30/20 06:24 RDW 15.5 % (13.2-15.2) H 08/30/20 06:24 Plt Count 243 K/mm3 (140-440) 08/30/20 06:24 Lymph % (Auto) 7.0 % (13.4-35.0) L 08/30/20 06:24 [place] % (Auto) 7.0 % (0.0-7.3) 08/30/20 06:24 Eos % (Auto) 1.5 % (0.0-4.3) 08/30/20 06:24 Baso % (Auto) 0.4 % (0.0-1.8) 08/30/20 06:24 Lymph # (Auto) 0.9 K/mm3 (1.2-5.4) L 08/30/20 06:24 [place] # (Auto) 0.9 K/mm3 (0.0-0.8) H 08/30/20 06:24 Eos # (Auto) 0.2 K/mm3 (0.0-0.4) 08/30/20 06:24 Baso # (Auto) 0.1 K/mm3 (0.0-0.1) 08/30/20 06:24 Seg Neutrophils % 84.1 % (40.0-70.0) H 08/30/20 06:24 Seg Neutrophils # 11.3 K/mm3 (1.8-7.7) H 08/30/20 06:24 PT 19.2 Sec. (12.2-14.9) H 08/29/20 14:43 INR 1.57 (0.87-1.13) H 08/29/20 14:43 APTT 36.9 Sec. (24.2-36.6) H 08/29/20 14:43 Sodium 136 mmol/L (137-145) L 08/30/20 06:24 Potassium 4.1 mmol/L (3.6-5.0) 08/30/20 06:24 Chloride 95.6 mmol/L (98-107) L 08/30/20 06:24 Carbon Dioxide 30 mmol/L (22-30) 08/30/20 06:24 Anion Gap 15 mmol/L 08/30/20 06:24 BUN 18 mg/dL (7-17) H 08/30/20 06:24 Creatinine 0.6 mg/dL (0.6-1.2) 08/30/20 06:24 Estimated GFR > 60 ml/min 08/30/20 06:24 BUN/Creatinine Ratio 30 % 08/30/20 06:24 Glucose 100 mg/dL (65-100) 08/30/20 06:24 Calcium 8.3 mg/dL (8.4-10.2) L 08/30/20 06:24 Urine Color Yellow (Yellow) 08/29/20 Unknown Urine Turbidity Clear (Clear) 08/29/20 Unknown Urine pH 6.0 (5.0-7.0) 08/29/20 Unknown Ur Specific [place] 1.014 (1.003-1.030) 08/29/20 Unknown Urine Protein <15 mg/dl mg/dL (Negative) 08/29/20 Unknown Urine Glucose (UA) Neg mg/dL (Negative) 08/29/20 Unknown Urine Ketones Tr mg/dL (Negative) 08/29/20 Unknown Urine Blood Neg (Negative) 08/29/20 Unknown Urine Nitrite Pos (Negative) 08/29/20 Unknown Urine Bilirubin Neg (Negative) 08/29/20 Unknown Urine Urobilinogen < 2.0 mg/dL (<2.0) 08/29/20 Unknown Ur Leukocyte Esterase Neg (Negative) 08/29/20 Unknown Urine WBC (Auto) 2.0 /HPF (0.0-6.0) 08/29/20 Unknown Urine RBC (Auto) 2.0 /HPF (0.0-6.0) 08/29/20 Unknown U Epithel Cells (Auto) 1.0 /HPF (0-13.0) 08/29/20 Unknown Lozano/IV: Voiding Method External Female Catheter Active Medications - Current Medications Current Medications: Generic Name Dose Route Start Last Admin Trade Name Freq PRN Reason Stop Dose Admin Acetaminophen 650 mg 08/29/20 16:01 Acetaminophen 325 Mg Tab PO Q4H PRN Pain MILD(1-3)/Fever >100.5/MCKEON Albuterol 2.5 mg 08/29/20 16:01 Albuterol 2.5 Mg/3 Ml Nebu IH Q4HRT PRN Shortness Of Breath Aspirin 81 mg 08/30/20 10:00 09/02/20 11:48 Aspirin Ec 81 Mg Tab PO 81 mg QDAY MAGNUS Administration Hydrochlorothiazide 25 mg 08/30/20 10:00 09/02/20 11:48 Hydrochlorothiazide 25 Mg Tab PO 25 mg DAILY MAGNUS Administration Hydromorphone HCl 0.5 mg 08/29/20 16:01 09/02/20 11:48 Hydromorphone 1 Mg/1 Ml Inj IV 0.5 mg Q3H PRN Administration Pain , Severe (7-10) Sodium Chloride 1,000 mls @ 42 mls/hr 08/29/20 17:15 08/30/20 10:58 Nacl 0.9% 1000 Ml IV 42 mls/hr DIRECT MAGNUS Administration Latanoprost 1 drops 08/30/20 20:00 09/01/20 21:23 Latanoprost 0.005% Ophth Soln 2.5 Ml OU 1 drops 1999 MAGNUS Administration Lisinopril 40 mg 08/30/20 10:00 09/02/20 11:49 Lisinopril 40 Mg Tab PO 40 mg DAILY MAGNUS Administration Metoprolol Succinate 50 mg 08/30/20 10:00 09/02/20 11:48 Metoprolol Succinate Xl 50 Mg Tab PO 50 mg QDAY MAGNUS Administration Ondansetron HCl 4 mg 08/29/20 16:01 08/30/20 13:22 Ondansetron 4 Mg/2 Ml Inj IV 4 mg Q8H PRN Administration Nausea And Vomiting Oxycodone/Acetaminophen 1 tab 08/29/20 16:01 09/01/20 11:11 Oxycodone /Acetaminophen 5-325mg Tab PO 1 tab Q6H PRN Administration Pain, Moderate (4-6) Pravastatin Sodium 20 mg 08/29/20 22:00 09/01/20 22:52 Pravastatin 20 Mg Tab PO 20 mg QHS MAGNUS Administration Rivaroxaban 20 mg 08/30/20 10:00 09/02/20 11:55 Rivaroxaban 20 Mg Tab PO 20 mg QDAY MAGNUS Administration Sodium Chloride 10 ml 08/29/20 22:00 09/01/20 22:00 Sodium Chloride 0.9% 10 Ml Flush Syringe IV 10 ml BID MAGNUS Administration Sodium Chloride 10 ml 08/29/20 16:01 Sodium Chloride 0.9% 10 Ml Flush Syringe IV PRN PRN LINE FLUSH
--- NOTE | 2020-09-02 16:08 | Event Note ---
Date: 09/02/20 Consulted to see the patient for acute inpatient rehabilitation placement. Patient has already been accepted to subacute rehab (SNF). Her insurance is out of network for our inpatient rehab. Based on review of records, it appears that her injuries and condition are more consistent for placement in a subacute rehab currently. The reasoning for this is she sustained a nonsurgical pelvic fracture and is currently max assist and not tolerating a strenuous amount of therapy. Occupational therapy has already recommended subacute rehab. Two different physical therapists have seen her with the first recommending subacute and the second recommending acute. In order to admit to the acute inpatient rehabilitation unit, she would need to be able to participate in a strenuous therapy program of 3 hours/day, 5 days/week and would need to be able to benefit from at least 2 out of 3 disciplines (PT/OT/SALES ORDER PROCESSOR). Currently we only have one discipline recommending acute inpatient rehab. If we were to attempt to obtain an exception to admit her for acute inpatient rehab it would likely take 3-4 days for a decision which may ultimately be a denial. I did attempt to evaluate the patient personally however she was asleep and had recently received pain medications. Due to this, and the review of records, I will forego a formal consult note. Discussed the case with the consulting physician (Dr Alonso).
[2020-09-02] MEDS: PRAVASTATIN 20 MG TAB PO SCH (23:01)
[2020-09-02] MEDS: LATANOPROST 0.005% OPHTH SOLN 2.5 ML OU SCH (23:05)
[2020-09-03] MEDS: HYDROmorphone 1 MG/1 ML INJ IV PRN ×2 (07:34→21:27)
[2020-09-03 08:30] LABS: Basophils % (Auto) 0.5 % (0.0-1.8); Eosinophils # (Auto) 0.2 K/mm3 (0.0-0.4); Eosinophils % (Auto) 2.3 % (0.0-4.3); Hematocrit 30.4 % (30.3-42.9); Hemoglobin 10.3 gm/dl (10.1-14.3); Lymphocytes # (Auto) 0.7 K/mm3 (1.2-5.4); Lymphocytes % (Auto) 6.6 % (13.4-35.0); Mean Corpuscular HGB Conc 34 % (30-34); Mean Corpuscular Volume 89 fl (79-97); Monocytes # (Auto) 0.9 K/mm3 (0.0-0.8); Monocytes % (Auto) 9.3 % (0.0-7.3); Platelet Count 292 K/mm3 (140-440); Red Blood Count 3.41 M/mm3 (3.65-5.03); Red Cell Distribution Width 16.2 % (13.2-15.2)
[2020-09-03 08:54] LABS: Blood Urea Nitrogen 14 mg/dL (7-17); Calcium 8.3 mg/dL (8.4-10.2); Hemolysis Index 5
[2020-09-03 09:20] LABS: BUN/Creatinine Ratio 47
[2020-09-03] MEDS: ASPIRIN EC 81 MG TAB PO SCH (10:12)
[2020-09-03] MEDS: METOPROLOL SUCCINATE XL 50 MG TAB PO SCH (10:14)
[2020-09-03] MEDS: hydroCHLOROthiazide 25 MG TAB PO SCH (10:14)
[2020-09-03] MEDS: RIVAROXABAN 20 MG TAB PO SCH (10:14)
[2020-09-03] MEDS: LISINOPRIL 40 MG TAB PO SCH (10:14)
[2020-09-03] MEDS ORDERED: POTASSIUM CHLORIDE ER 20 MEQ TAB PO NR (11:34)
--- NOTE | 2020-09-03 11:34 | Progress Note ---
Assessment and Plan Assessment and plan: -- Rt Pelvic Fracture/right inferior pubic ramus Current Visit: Yes Status: Acute Orthopedic surgery evaluation noted and appreciated stable pelvic fracture, no surgical intervention PT and gait training --Fracture of superior ramus of right pubis Current Visit: Yes Status: Acute stable pelvic fracture, Gait training and PT Ortho evaluated Ortho evaluated, no intervention needed --General debility Current Visit: Yes Status: Acute Advanced age , fall fracture bilateral right pubic rami Pain management , PT , gait training , Ortho evaluated --Uncontrolled pain Current Visit: Yes Status: Acute Pain control as per pain protocol, nursing assessment as per routine. -- Paroxysmal atrial fibrillation Current Visit: Yes Status: Acute Continue therapeutic anticoagulation, High risk with recurrent falls, check with cardiology if needed -- DVT prophylaxis Current Visit: Yes Status: Acute . Patient is on Eliquis --Full CODE STATUS ; --Advance care planning Current Visit: Yes Status: Acute . Plan of care reviewed with the patient, and her nurse, I discussed with patient's [id number] PT recommend acute rehab placement. Awaiting subacute/SNF placement Case management assisting with discharge planning Closely monitor the patient and adjust the management as needed History Interval history: I have seen and examined the patient at the bedside Patient's chart and medications reviewed Patient complains of some hip pain Awaiting subacute rehab placement Vital signs reviewed Hospitalist Physical - Constitutional Vitals: Temp Pulse Resp BP Pulse Ox 98.1 F 129 H 18 170/109 95 09/03/20 03:50 09/03/20 03:50 09/03/20 03:50 09/03/20 03:50 09/03/20 03:50 General appearance: Present: no acute distress, well-nourished - EENT Eyes: Present: PERRL, EOM intact - Neck Neck: Present: supple, normal ROM - Respiratory Respiratory effort: normal Respiratory: bilateral: diminished, negative: rales, rhonchi, wheezing - Cardiovascular Rhythm: regular Heart Sounds: Present: S1 & S2 - Extremities Extremities: no ischemia, No edema - Abdominal General gastrointestinal: soft, non-tender, non-distended, normal bowel sounds - Integumentary Integumentary: Present: clear, warm - Psychiatric Psychiatric: appropriate mood/affect, cooperative - Neurologic Neurologic: moves all extremities Results - Labs CBC & Chem 7: 09/03/20 07:49 09/03/20 07:49 Labs: Laboratory Last Values WBC 9.9 K/mm3 (4.5-11.0) 09/03/20 07:49 RBC 3.41 M/mm3 (3.65-5.03) L 09/03/20 07:49 Hgb 10.3 gm/dl (10.1-14.3) 09/03/20 07:49 Hct 30.4 % (30.3-42.9) 09/03/20 07:49 MCV 89 fl (79-97) 09/03/20 07:49 MCH 30 pg (28-32) 09/03/20 07:49 MCHC 34 % (30-34) 09/03/20 07:49 RDW 16.2 % (13.2-15.2) H 09/03/20 07:49 Plt Count 292 K/mm3 (140-440) 09/03/20 07:49 Lymph % (Auto) 6.6 % (13.4-35.0) L 09/03/20 07:49 [place] % (Auto) 9.3 % (0.0-7.3) H 09/03/20 07:49 Eos % (Auto) 2.3 % (0.0-4.3) 09/03/20 07:49 Baso % (Auto) 0.5 % (0.0-1.8) 09/03/20 07:49 Lymph # (Auto) 0.7 K/mm3 (1.2-5.4) L 09/03/20 07:49 [place] # (Auto) 0.9 K/mm3 (0.0-0.8) H 09/03/20 07:49 Eos # (Auto) 0.2 K/mm3 (0.0-0.4) 09/03/20 07:49 Baso # (Auto) 0.0 K/mm3 (0.0-0.1) 09/03/20 07:49 Seg Neutrophils % 81.3 % (40.0-70.0) H 09/03/20 07:49 Seg Neutrophils # 8.0 K/mm3 (1.8-7.7) H 09/03/20 07:49 PT 19.2 Sec. (12.2-14.9) H 08/29/20 14:43 INR 1.57 (0.87-1.13) H 08/29/20 14:43 APTT 36.9 Sec. (24.2-36.6) H 08/29/20 14:43 Sodium 133 mmol/L (137-145) L 09/03/20 07:49 Potassium 3.4 mmol/L (3.6-5.0) L 09/03/20 07:49 Chloride 90.9 mmol/L (98-107) L 09/03/20 07:49 Carbon Dioxide 32 mmol/L (22-30) H 09/03/20 07:49 Anion Gap 14 mmol/L 09/03/20 07:49 BUN 14 mg/dL (7-17) 09/03/20 07:49 Creatinine 0.3 mg/dL (0.6-1.2) L 09/03/20 07:49 Estimated GFR > 60 ml/min 09/03/20 07:49 BUN/Creatinine Ratio 47 % 09/03/20 07:49 Glucose 107 mg/dL (65-100) H 09/03/20 07:49 Calcium 8.3 mg/dL (8.4-10.2) L 09/03/20 07:49 Total Creatine Kinase 102 units/L (30-135) 09/03/20 07:49 Urine Color Yellow (Yellow) 08/29/20 Unknown Urine Turbidity Clear (Clear) 08/29/20 Unknown Urine pH 6.0 (5.0-7.0) 08/29/20 Unknown Ur Specific [place] 1.014 (1.003-1.030) 08/29/20 Unknown Urine Protein <15 mg/dl mg/dL (Negative) 08/29/20 Unknown Urine Glucose (UA) Neg mg/dL (Negative) 08/29/20 Unknown Urine Ketones Tr mg/dL (Negative) 08/29/20 Unknown Urine Blood Neg (Negative) 08/29/20 Unknown Urine Nitrite Pos (Negative) 08/29/20 Unknown Urine Bilirubin Neg (Negative) 08/29/20 Unknown Urine Urobilinogen < 2.0 mg/dL (<2.0) 08/29/20 Unknown Ur Leukocyte Esterase Neg (Negative) 08/29/20 Unknown Urine WBC (Auto) 2.0 /HPF (0.0-6.0) 08/29/20 Unknown Urine RBC (Auto) 2.0 /HPF (0.0-6.0) 08/29/20 Unknown U Epithel Cells (Auto) 1.0 /HPF (0-13.0) 08/29/20 Unknown Lozano/IV: Voiding Method External Female Catheter Active Medications - Current Medications Current Medications: Generic Name Dose Route Start Last Admin Trade Name Freq PRN Reason Stop Dose Admin Acetaminophen 650 mg 08/29/20 16:01 Acetaminophen 325 Mg Tab PO Q4H PRN Pain MILD(1-3)/Fever >100.5/MCKEON Albuterol 2.5 mg 08/29/20 16:01 Albuterol 2.5 Mg/3 Ml Nebu IH Q4HRT PRN Shortness Of Breath Aspirin 81 mg 08/30/20 10:00 09/03/20 10:12 Aspirin Ec 81 Mg Tab PO 81 mg QDAY MAGNUS Administration Hydrochlorothiazide 25 mg 08/30/20 10:00 09/03/20 10:14 Hydrochlorothiazide 25 Mg Tab PO 25 mg DAILY MAGNUS Administration Hydromorphone HCl 0.5 mg 08/29/20 16:01 09/03/20 07:34 Hydromorphone 1 Mg/1 Ml Inj IV 0.5 mg Q3H PRN Administration Pain , Severe (7-10) Sodium Chloride 1,000 mls @ 42 mls/hr 08/29/20 17:15 08/30/20 10:58 Nacl 0.9% 1000 Ml IV 42 mls/hr DIRECT MAGNUS Administration Latanoprost 1 drops 08/30/20 20:00 09/02/20 23:05 Latanoprost 0.005% Ophth Soln 2.5 Ml OU 1 drops 2000 MAGNUS Administration Lisinopril 40 mg 08/30/20 10:00 09/03/20 10:14 Lisinopril 40 Mg Tab PO 40 mg DAILY MAGNUS Administration Metoprolol Succinate 50 mg 08/30/20 10:00 09/03/20 10:14 Metoprolol Succinate Xl 50 Mg Tab PO 50 mg QDAY MAGNUS Administration Ondansetron HCl 4 mg 08/29/20 16:01 08/30/20 13:22 Ondansetron 4 Mg/2 Ml Inj IV 4 mg Q8H PRN Administration Nausea And Vomiting Oxycodone/Acetaminophen 1 tab 08/29/20 16:01 09/01/20 11:11 Oxycodone /Acetaminophen 5-325mg Tab PO 1 tab Q6H PRN Administration Pain, Moderate (4-6) Pravastatin Sodium 20 mg 08/29/20 22:00 09/02/20 23:01 Pravastatin 20 Mg Tab PO 20 mg QHS MAGNUS Administration Rivaroxaban 20 mg 08/30/20 10:00 09/03/20 10:14 Rivaroxaban 20 Mg Tab PO 20 mg QDAY MAGNUS Administration Sodium Chloride 10 ml 08/29/20 22:00 09/03/20 10:15 Sodium Chloride 0.9% 10 Ml Flush Syringe IV 10 ml BID MAGNUS Administration Sodium Chloride 10 ml 08/29/20 16:01 Sodium Chloride 0.9% 10 Ml Flush Syringe IV PRN PRN LINE FLUSH
[2020-09-03] MEDS: oxyCODONE /ACETAMINOPHEN 5-325MG TAB PO PRN ×2 (13:00→18:29)
[2020-09-03] MEDS ORDERED: LIP THERAPY VASELINE TP PRN (16:38)
[2020-09-03] MEDS: LATANOPROST 0.005% OPHTH SOLN 2.5 ML OU SCH (21:26)
[2020-09-03] MEDS: PRAVASTATIN 20 MG TAB PO SCH (21:26)
[2020-09-04] MEDS: oxyCODONE /ACETAMINOPHEN 5-325MG TAB PO PRN ×3 (01:45→21:05)
[2020-09-04] MEDS: LISINOPRIL 40 MG TAB PO SCH (09:19)
[2020-09-04] MEDS: ASPIRIN EC 81 MG TAB PO SCH (09:19)
[2020-09-04] MEDS: hydroCHLOROthiazide 25 MG TAB PO SCH (09:19)
[2020-09-04] MEDS: METOPROLOL SUCCINATE XL 50 MG TAB PO SCH (09:20)
[2020-09-04] MEDS: RIVAROXABAN 20 MG TAB PO SCH (09:22)
--- NOTE | 2020-09-04 12:09 | Progress Note ---
Assessment and Plan Assessment and plan: --Constipation; Current Visit: Yes Status: Chronic Plenty oral fluids, milk of magnesia x1 dose We will repeat 1 more time if needed and If no improvement we will consider enema Stool softeners as needed Closely monitor --General debility Current Visit: Yes Status: Acute Advanced age , fall fracture bilateral right pubic rami Pain management , PT evaluated, gait training in process recommend Subacute rehab placement --Uncontrolled pain Current Visit: Yes Status: Acute Pain control as per pain protocol, nursing assessment as per routine. -- Paroxysmal atrial fibrillation Current Visit: Yes Status: Acute Continue therapeutic anticoagulation, High risk with recurrent falls, check with cardiology if needed -- Rt Pelvic Fracture/right inferior pubic ramus Current Visit: Yes Status: Acute Orthopedic surgery evaluated no surgical intervention stable pelvic fracture, PT and gait training PT recommend subacute rehab/SNF placement --Fracture of superior ramus of right pubis Current Visit: Yes Status: Acute stable pelvic fracture, Gait training and PT Ortho evaluated, no intervention needed -- DVT prophylaxis Current Visit: Yes Status: Acute . Patient is on Eliquis --Full CODE STATUS ; --Advance care planning Current Visit: Yes Status: Acute . Plan of care reviewed with the patient, and her nurse, I discussed with patient's [id number] PT recommend acute rehab placement. Awaiting subacute/SNF placement Case management assisting with discharge planning Closely monitor the patient and adjust the management as needed Brief history and daily hospital course; very frail 85-year-old elderly female patient was admitted through emergency room with history of recurrent falls General debility Imaging studies consistent with right pelvic fracture inferior and superior ramus, patient was symptomatically managed evaluated by orthopedic surgeon, no indication for surgical intervention, advised physical therapy and gait training, PT recommended acute inpatient rehab/subacute rehab DC planning per case management, awaiting placement. 09/04/2020; patient dividing subacute rehab placement Complaints of constipation, advised milk of magnesia PT OT as tolerated I discussed in detail patient's condition and treatment plan with patient's [id number] Ms Best History Interval history: I have seen and examined the patient at the bedside today Patient's chart and medications reviewed Patient feels slightly better still has some hip pain Vital signs stable Patient's family report that patient has a constipation of 4 to 5 days Denies nausea vomiting or abdominal pain Hospitalist Physical - Constitutional Vitals: Temp Pulse Resp BP Pulse Ox 97.3 F L 119 H 16 138/92 93 09/04/20 11:28 09/04/20 11:28 09/04/20 11:28 09/04/20 11:28 09/04/20 11:28 General appearance: Present: no acute distress, well-nourished - EENT Eyes: Present: PERRL, EOM intact - Neck Neck: Present: supple, normal ROM - Respiratory Respiratory effort: normal Respiratory: bilateral: diminished, negative: rales, rhonchi, wheezing - Cardiovascular Rhythm: regular Heart Sounds: Present: S1 & S2 - Extremities Extremities: no ischemia, No edema, abnormal - Abdominal General gastrointestinal: soft, non-tender, non-distended, normal bowel sounds - Integumentary Integumentary: Present: clear, warm - Psychiatric Psychiatric: appropriate mood/affect, memory intact - Neurologic Neurologic: moves all extremities Results - Labs CBC & Chem 7: 09/03/20 07:49 09/05/20 05:10 Labs: Laboratory Last Values WBC 9.9 K/mm3 (4.5-11.0) 09/03/20 07:49 RBC 3.41 M/mm3 (3.65-5.03) L 09/03/20 07:49 Hgb 10.3 gm/dl (10.1-14.3) 09/03/20 07:49 Hct 30.4 % (30.3-42.9) 09/03/20 07:49 MCV 89 fl (79-97) 09/03/20 07:49 MCH 30 pg (28-32) 09/03/20 07:49 MCHC 34 % (30-34) 09/03/20 07:49 RDW 16.2 % (13.2-15.2) H 09/03/20 07:49 Plt Count 292 K/mm3 (140-440) 09/03/20 07:49 Lymph % (Auto) 6.6 % (13.4-35.0) L 09/03/20 07:49 [place] % (Auto) 9.3 % (0.0-7.3) H 09/03/20 07:49 Eos % (Auto) 2.3 % (0.0-4.3) 09/03/20 07:49 Baso % (Auto) 0.5 % (0.0-1.8) 09/03/20 07:49 Lymph # (Auto) 0.7 K/mm3 (1.2-5.4) L 09/03/20 07:49 [place] # (Auto) 0.9 K/mm3 (0.0-0.8) H 09/03/20 07:49 Eos # (Auto) 0.2 K/mm3 (0.0-0.4) 09/03/20 07:49 Baso # (Auto) 0.0 K/mm3 (0.0-0.1) 09/03/20 07:49 Seg Neutrophils % 81.3 % (40.0-70.0) H 09/03/20 07:49 Seg Neutrophils # 8.0 K/mm3 (1.8-7.7) H 09/03/20 07:49 PT 19.2 Sec. (12.2-14.9) H 08/29/20 14:43 INR 1.57 (0.87-1.13) H 08/29/20 14:43 APTT 36.9 Sec. (24.2-36.6) H 08/29/20 14:43 Sodium 133 mmol/L (137-145) L 09/03/20 07:49 Potassium 3.4 mmol/L (3.6-5.0) L 09/03/20 07:49 Chloride 90.9 mmol/L (98-107) L 09/03/20 07:49 Carbon Dioxide 32 mmol/L (22-30) H 09/03/20 07:49 Anion Gap 14 mmol/L 09/03/20 07:49 BUN 14 mg/dL (7-17) 09/03/20 07:49 Creatinine 0.3 mg/dL (0.6-1.2) L 09/03/20 07:49 Estimated GFR > 60 ml/min 09/03/20 07:49 BUN/Creatinine Ratio 47 % 09/03/20 07:49 Glucose 107 mg/dL (65-100) H 09/03/20 07:49 Calcium 8.3 mg/dL (8.4-10.2) L 09/03/20 07:49 Total Creatine Kinase 102 units/L (30-135) 09/03/20 07:49 Urine Color Yellow (Yellow) 08/29/20 Unknown Urine Turbidity Clear (Clear) 08/29/20 Unknown Urine pH 6.0 (5.0-7.0) 08/29/20 Unknown Ur Specific [place] 1.014 (1.003-1.030) 08/29/20 Unknown Urine Protein <15 mg/dl mg/dL (Negative) 08/29/20 Unknown Urine Glucose (UA) Neg mg/dL (Negative) 08/29/20 Unknown Urine Ketones Tr mg/dL (Negative) 08/29/20 Unknown Urine Blood Neg (Negative) 08/29/20 Unknown Urine Nitrite Pos (Negative) 08/29/20 Unknown Urine Bilirubin Neg (Negative) 08/29/20 Unknown Urine Urobilinogen < 2.0 mg/dL (<2.0) 08/29/20 Unknown Ur Leukocyte Esterase Neg (Negative) 08/29/20 Unknown Urine WBC (Auto) 2.0 /HPF (0.0-6.0) 08/29/20 Unknown Urine RBC (Auto) 2.0 /HPF (0.0-6.0) 08/29/20 Unknown U Epithel Cells (Auto) 1.0 /HPF (0-13.0) 08/29/20 Unknown Lozano/IV: Voiding Method External Female Catheter Active Medications - Current Medications Current Medications: Generic Name Dose Route Start Last Admin Trade Name Freq PRN Reason Stop Dose Admin Acetaminophen 650 mg 08/29/20 16:01 Acetaminophen 325 Mg Tab PO Q4H PRN Pain MILD(1-3)/Fever >100.5/MCKEON Albuterol 2.5 mg 08/29/20 16:01 Albuterol 2.5 Mg/3 Ml Nebu IH Q4HRT PRN Shortness Of Breath Aspirin 81 mg 08/30/20 10:00 09/04/20 09:19 Aspirin Ec 81 Mg Tab PO 81 mg QDAY MAGNUS Administration Hydrochlorothiazide 25 mg 08/30/20 10:00 09/04/20 09:19 Hydrochlorothiazide 25 Mg Tab PO 25 mg DAILY MAGNUS Administration Hydromorphone HCl 0.5 mg 08/29/20 16:01 09/03/20 21:27 Hydromorphone 1 Mg/1 Ml Inj IV 0.5 mg Q3H PRN Administration Pain , Severe (7-10) Hydrophilic Ointment 1 applic 09/03/20 16:38 09/03/20 18:29 Lip Therapy Vaseline TP 1 applic DIRECT PRN Administration Dry Lips Sodium Chloride 1,000 mls @ 42 mls/hr 08/29/20 17:15 08/30/20 10:58 Nacl 0.9% 1000 Ml IV 42 mls/hr DIRECT MAGNUS Administration Latanoprost 1 drops 08/30/20 20:00 09/03/20 21:26 Latanoprost 0.005% Ophth Soln 2.5 Ml OU 1 drops 1999 MAGNUS Administration Lisinopril 40 mg 08/30/20 10:00 09/04/20 09:19 Lisinopril 40 Mg Tab PO 40 mg DAILY MAGNUS Administration Metoprolol Succinate 50 mg 08/30/20 10:00 09/04/20 09:20 Metoprolol Succinate Xl 50 Mg Tab PO 50 mg QDAY MAGNUS Administration Ondansetron HCl 4 mg 08/29/20 16:01 08/30/20 13:22 Ondansetron 4 Mg/2 Ml Inj IV 4 mg Q8H PRN Administration Nausea And Vomiting Oxycodone/Acetaminophen 1 tab 08/29/20 16:01 09/04/20 09:20 Oxycodone /Acetaminophen 5-325mg Tab PO 1 tab Q6H PRN Administration Pain, Moderate (4-6) Pravastatin Sodium 20 mg 08/29/20 22:00 09/03/20 21:26 Pravastatin 20 Mg Tab PO 20 mg QHS MAGNUS Administration Rivaroxaban 20 mg 08/30/20 10:00 09/04/20 09:22 Rivaroxaban 20 Mg Tab PO 20 mg QDAY MAGNUS Administration Sodium Chloride 10 ml 08/29/20 22:00 09/04/20 09:22 Sodium Chloride 0.9% 10 Ml Flush Syringe IV 10 ml BID MAGNUS Administration Sodium Chloride 10 ml 08/29/20 16:01 Sodium Chloride 0.9% 10 Ml Flush Syringe IV PRN PRN LINE FLUSH
[2020-09-04] MEDS: HYDROmorphone 1 MG/1 ML INJ IV PRN (15:15)
[2020-09-04] MEDS ORDERED: MAGNESIUM HYDROXIDE (MOM) ORAL LIQD UDC PO ONE (18:00)
[2020-09-04] MEDS: PRAVASTATIN 20 MG TAB PO SCH (21:06)
[2020-09-04] MEDS: LATANOPROST 0.005% OPHTH SOLN 2.5 ML OU SCH (21:06)
[2020-09-05] MEDS: oxyCODONE /ACETAMINOPHEN 5-325MG TAB PO PRN ×3 (04:29→20:36)
--- NOTE | 2020-09-05 07:40 | Progress Note ---
Assessment and Plan Assessment and plan: --History of fall; Current Visit: Yes Status: Acute History of recurrent falls, fall precautions PT and OT, rehabilitation -- Rt Pelvic Fracture/right inferior pubic ramus Current Visit: Yes Status: Acute Orthopedic surgery evaluated no surgical intervention stable pelvic fracture, PT and gait training PT recommend subacute rehab/SNF placement --Fracture of superior ramus of right pubis Current Visit: Yes Status: Acute stable pelvic fracture, Gait training and PT Ortho evaluated, no intervention needed --Constipation; Current Visit: Yes Status: Chronic Plenty oral fluids, milk of magnesia x1 dose We will repeat 1 more time if needed and If no improvement we will consider enema Stool softeners as needed Closely monitor --General debility Current Visit: Yes Status: Acute Advanced age , fall fracture bilateral right pubic rami Pain management , PT evaluated, gait training in process recommend Subacute rehab placement --Uncontrolled pain Current Visit: Yes Status: Acute Pain control as per pain protocol, nursing assessment as per routine. -- Paroxysmal atrial fibrillation Current Visit: Yes Status: Acute Continue therapeutic anticoagulation, High risk with recurrent falls, check with cardiology if needed -- DVT prophylaxis Current Visit: Yes Status: Acute . Patient is on Eliquis --Full CODE STATUS ; --Advance care planning Current Visit: Yes Status: Acute . Plan of care reviewed with the patient, and her nurse, I discussed with patient's [id number] PT recommend acute rehab placement. Awaiting subacute/SNF placement Case management assisting with discharge planning Closely monitor the patient and adjust the management as needed Brief history and hospital course; very frail 85-year-old elderly female patient was admitted through emergency room with history of recurrent falls General debility Imaging studies consistent with right pelvic fracture inferior and superior ramus, patient was symptomatically managed evaluated by orthopedic surgeon, no indication for surgical intervention, advised physical therapy and gait training, PT recommended acute inpatient rehab/subacute rehab DC planning per case management, awaiting placement. Patient has chronic constipation, advised milk of magnesia last night , if no improvement will give another dose of milk of magnesia and Dulcolax today .if it does not work consider enema , Daily Hospital course; 09/04/2020; patient dividing subacute rehab placement Complaints of constipation, advised milk of magnesia PT OT as tolerated I discussed in detail patient's condition and treatment plan with patient's [id number] Ms Best 09/05/2020; continue stool softeners If no improvement consider enema Awaiting placement subacute rehab History Interval history: I have seen and examined the patient at the bedside Patient's chart and medications reviewed Patient continues to have constipation Patient is concerned about her constipation Sometimes confused Vital signs noted Hospitalist Physical - Constitutional Vitals: Temp Pulse Resp BP Pulse Ox 97.2 F L 84 18 131/74 94 09/05/20 07:30 09/05/20 07:30 09/05/20 07:30 09/05/20 07:30 09/05/20 07:30 General appearance: Present: no acute distress, well-nourished - EENT Eyes: Present: PERRL, EOM intact - Neck Neck: Present: supple, normal ROM - Respiratory Respiratory effort: normal Respiratory: bilateral: diminished, negative: rales, rhonchi, wheezing - Cardiovascular Rhythm: regular Heart Sounds: Present: S1 & S2 - Extremities Extremities: no ischemia, No edema - Abdominal General gastrointestinal: soft, non-tender, non-distended, normal bowel sounds - Integumentary Integumentary: Present: clear, warm - Psychiatric Psychiatric: appropriate mood/affect, cooperative - Neurologic Neurologic: CNII-XII intact, moves all extremities Results - Labs CBC & Chem 7: 09/03/20 07:49 09/05/20 05:10 Labs: Laboratory Last Values WBC 9.9 K/mm3 (4.5-11.0) 09/03/20 07:49 RBC 3.41 M/mm3 (3.65-5.03) L 09/03/20 07:49 Hgb 10.3 gm/dl (10.1-14.3) 09/03/20 07:49 Hct 30.4 % (30.3-42.9) 09/03/20 07:49 MCV 89 fl (79-97) 09/03/20 07:49 MCH 30 pg (28-32) 09/03/20 07:49 MCHC 34 % (30-34) 09/03/20 07:49 RDW 16.2 % (13.2-15.2) H 09/03/20 07:49 Plt Count 292 K/mm3 (140-440) 09/03/20 07:49 Lymph % (Auto) 6.6 % (13.4-35.0) L 09/03/20 07:49 [place] % (Auto) 9.3 % (0.0-7.3) H 09/03/20 07:49 Eos % (Auto) 2.3 % (0.0-4.3) 09/03/20 07:49 Baso % (Auto) 0.5 % (0.0-1.8) 09/03/20 07:49 Lymph # (Auto) 0.7 K/mm3 (1.2-5.4) L 09/03/20 07:49 [place] # (Auto) 0.9 K/mm3 (0.0-0.8) H 09/03/20 07:49 Eos # (Auto) 0.2 K/mm3 (0.0-0.4) 09/03/20 07:49 Baso # (Auto) 0.0 K/mm3 (0.0-0.1) 09/03/20 07:49 Seg Neutrophils % 81.3 % (40.0-70.0) H 09/03/20 07:49 Seg Neutrophils # 8.0 K/mm3 (1.8-7.7) H 09/03/20 07:49 PT 19.2 Sec. (12.2-14.9) H 08/29/20 14:43 INR 1.57 (0.87-1.13) H 08/29/20 14:43 APTT 36.9 Sec. (24.2-36.6) H 08/29/20 14:43 Sodium 133 mmol/L (137-145) L 09/03/20 07:49 Potassium 3.7 mmol/L (3.6-5.0) 09/05/20 05:10 Chloride 90.9 mmol/L (98-107) L 09/03/20 07:49 Carbon Dioxide 32 mmol/L (22-30) H 09/03/20 07:49 Anion Gap 14 mmol/L 09/03/20 07:49 BUN 14 mg/dL (7-17) 09/03/20 07:49 Creatinine 0.3 mg/dL (0.6-1.2) L 09/03/20 07:49 Estimated GFR > 60 ml/min 09/03/20 07:49 BUN/Creatinine Ratio 47 % 09/03/20 07:49 Glucose 107 mg/dL (65-100) H 09/03/20 07:49 Calcium 8.3 mg/dL (8.4-10.2) L 09/03/20 07:49 Magnesium 2.20 mg/dL (1.7-2.3) 09/05/20 05:10 Total Creatine Kinase 102 units/L (30-135) 09/03/20 07:49 Urine Color Yellow (Yellow) 08/29/20 Unknown Urine Turbidity Clear (Clear) 08/29/20 Unknown Urine pH 6.0 (5.0-7.0) 08/29/20 Unknown Ur Specific [place] 1.014 (1.003-1.030) 08/29/20 Unknown Urine Protein <15 mg/dl mg/dL (Negative) 08/29/20 Unknown Urine Glucose (UA) Neg mg/dL (Negative) 08/29/20 Unknown Urine Ketones Tr mg/dL (Negative) 08/29/20 Unknown Urine Blood Neg (Negative) 08/29/20 Unknown Urine Nitrite Pos (Negative) 08/29/20 Unknown Urine Bilirubin Neg (Negative) 08/29/20 Unknown Urine Urobilinogen < 2.0 mg/dL (<2.0) 08/29/20 Unknown Ur Leukocyte Esterase Neg (Negative) 08/29/20 Unknown Urine WBC (Auto) 2.0 /HPF (0.0-6.0) 08/29/20 Unknown Urine RBC (Auto) 2.0 /HPF (0.0-6.0) 08/29/20 Unknown U Epithel Cells (Auto) 1.0 /HPF (0-13.0) 08/29/20 Unknown Lozano/IV: Voiding Method External Female Catheter Active Medications - Current Medications Current Medications: Generic Name Dose Route Start Last Admin Trade Name Freq PRN Reason Stop Dose Admin Acetaminophen 650 mg 08/29/20 16:01 Acetaminophen 325 Mg Tab PO Q4H PRN Pain MILD(1-3)/Fever >100.5/MCKEON Albuterol 2.5 mg 08/29/20 16:01 Albuterol 2.5 Mg/3 Ml Nebu IH Q4HRT PRN Shortness Of Breath Aspirin 81 mg 08/30/20 10:00 09/04/20 09:19 Aspirin Ec 81 Mg Tab PO 81 mg QDAY MAGNUS Administration Bisacodyl 10 mg 09/05/20 08:00 Bisacodyl 10 Mg Rect Supp CO 09/05/20 12:00 ONCE@0800 NR Hydrochlorothiazide 25 mg 08/30/20 10:00 09/04/20 09:19 Hydrochlorothiazide 25 Mg Tab PO 25 mg DAILY MAGNUS Administration Hydromorphone HCl 0.5 mg 08/29/20 16:01 09/04/20 15:15 Hydromorphone 1 Mg/1 Ml Inj IV 0.5 mg Q3H PRN Administration Pain , Severe (7-10) Hydrophilic Ointment 1 applic 09/03/20 16:38 09/03/20 18:29 Lip Therapy Vaseline TP 1 applic DIRECT PRN Administration Dry Lips Sodium Chloride 1,000 mls @ 42 mls/hr 08/29/20 17:15 08/30/20 10:58 Nacl 0.9% 1000 Ml IV 42 mls/hr DIRECT MAGNUS Administration Latanoprost 1 drops 08/30/20 20:00 09/04/20 21:06 Latanoprost 0.005% Ophth Soln 2.5 Ml OU 1 drops 2000 MAGNUS Administration Lisinopril 40 mg 08/30/20 10:00 09/04/20 09:19 Lisinopril 40 Mg Tab PO 40 mg DAILY MAGNUS Administration Magnesium Hydroxide 30 ml 09/05/20 07:33 Magnesium Hydroxide (Mom) Oral Liqd Udc PO 09/05/20 07:34 ONCE ONE Metoprolol Succinate 50 mg 08/30/20 10:00 09/04/20 09:20 Metoprolol Succinate Xl 50 Mg Tab PO 50 mg QDAY MAGNUS Administration Ondansetron HCl 4 mg 08/29/20 16:01 08/30/20 13:22 Ondansetron 4 Mg/2 Ml Inj IV 4 mg Q8H PRN Administration Nausea And Vomiting Oxycodone/Acetaminophen 1 tab 08/29/20 16:01 09/05/20 04:29 Oxycodone /Acetaminophen 5-325mg Tab PO 1 tab Q6H PRN Administration Pain, Moderate (4-6) Pravastatin Sodium 20 mg 08/29/20 22:00 09/04/20 21:06 Pravastatin 20 Mg Tab PO 20 mg QHS MAGNUS Administration Rivaroxaban 20 mg 08/30/20 10:00 09/04/20 09:22 Rivaroxaban 20 Mg Tab PO 20 mg QDAY MAGNUS Administration Sodium Chloride 10 ml 08/29/20 22:00 09/04/20 21:12 Sodium Chloride 0.9% 10 Ml Flush Syringe IV 10 ml BID MAGNUS Administration Sodium Chloride 10 ml 08/29/20 16:01 Sodium Chloride 0.9% 10 Ml Flush Syringe IV PRN PRN LINE FLUSH
[2020-09-05] MEDS ORDERED: MAGNESIUM HYDROXIDE (MOM) ORAL LIQD UDC PO NR (08:00)
[2020-09-05] MEDS: ASPIRIN EC 81 MG TAB PO SCH (09:03)
[2020-09-05] MEDS: RIVAROXABAN 20 MG TAB PO SCH (09:03)
[2020-09-05] MEDS: hydroCHLOROthiazide 25 MG TAB PO SCH (09:03)
[2020-09-05] MEDS: METOPROLOL SUCCINATE XL 50 MG TAB PO SCH (09:04)
[2020-09-05] MEDS: LISINOPRIL 40 MG TAB PO SCH (09:04)
[2020-09-05] MEDS ORDERED: MAGNESIUM HYDROXIDE (MOM) ORAL LIQD UDC PO ONE (10:00)
[2020-09-05] MEDS: HYDROmorphone 1 MG/1 ML INJ IV PRN (14:42)
[2020-09-05] MEDS: PRAVASTATIN 20 MG TAB PO SCH (21:53)
[2020-09-05] MEDS: LATANOPROST 0.005% OPHTH SOLN 2.5 ML OU SCH (21:53)
[2020-09-06] MEDS: oxyCODONE /ACETAMINOPHEN 5-325MG TAB PO PRN ×4 (02:15→22:29)
[2020-09-06] MEDS: LISINOPRIL 40 MG TAB PO SCH (09:03)
[2020-09-06] MEDS: RIVAROXABAN 20 MG TAB PO SCH (09:03)
[2020-09-06] MEDS: hydroCHLOROthiazide 25 MG TAB PO SCH (09:03)
[2020-09-06] MEDS: ASPIRIN EC 81 MG TAB PO SCH (09:03)
[2020-09-06] MEDS: METOPROLOL SUCCINATE XL 50 MG TAB PO SCH (09:03)
--- NOTE | 2020-09-06 09:08 | Progress Note ---
Assessment and Plan Assessment and plan: --History of fall; Current Visit: Yes Status: Acute History of recurrent falls, fall precautions PT and OT, rehabilitation -- Rt Pelvic Fracture/right inferior pubic ramus Current Visit: Yes Status: Acute Orthopedic surgery evaluated no surgical intervention stable pelvic fracture, PT and gait training PT recommend subacute rehab/SNF placement --Fracture of superior ramus of right pubis Current Visit: Yes Status: Acute stable pelvic fracture, Gait training and PT Ortho evaluated, no intervention needed --Constipation; Current Visit: Yes Status: Chronic Plenty oral fluids, milk of magnesia x1 dose We will repeat 1 more time if needed and If no improvement we will consider enema Patient had good bowel movement yesterday Continue stool softeners as needed --General debility Current Visit: Yes Status: Acute Advanced age , fall fracture bilateral right pubic rami Pain management , PT evaluated, gait training in process recommend Subacute rehab placement --Uncontrolled pain Current Visit: Yes Status: Acute Pain control as per pain protocol, nursing assessment as per routine. -- Paroxysmal atrial fibrillation Current Visit: Yes Status: Acute Continue therapeutic anticoagulation, High risk with recurrent falls, check with cardiology if needed -- DVT prophylaxis Current Visit: Yes Status: Acute . Patient is on Eliquis --Full CODE STATUS ; --Advance care planning Current Visit: Yes Status: Acute . Plan of care reviewed with the patient, and her nurse, I discussed with patient's [id number] PT recommend acute rehab placement. Awaiting subacute/SNF placement Case management assisting with discharge planning Closely monitor the patient and adjust the management as needed Brief history and hospital course; very frail 85-year-old elderly female patient was admitted through emergency room with history of recurrent falls General debility Imaging studies consistent with right pelvic fracture inferior and superior ramus, patient was symptomatically managed evaluated by orthopedic surgeon, no indication for surgical intervention, advised physical therapy and gait training, PT recommended acute inpatient rehab/subacute rehab DC planning per case management, awaiting placement. Patient has chronic constipation, advised milk of magnesia last night , if no improvement will give another dose of milk of magnesia and Dulcolax today .if it does not work consider enema , Daily Hospital course; 09/04/2020; patient dividing subacute rehab placement Complaints of constipation, advised milk of magnesia PT OT as tolerated I discussed in detail patient's condition and treatment plan with patient's [id number] Ms Best 09/05/2020; continue stool softeners If no improvement consider enema Awaiting placement subacute rehab 09/06/2020; awaiting subacute rehab placement Patient has no new complaints Had a bowel movement yesterday History Interval history: I have seen and examined the patient and her room at the bedside Patient's chart and medications reviewed No new overnight events reported by the nursing staff Patient had bowel movement with stool softeners yesterday Patient feels better and comfortable anxious to go home Vital signs noted Hospitalist Physical - Constitutional Vitals: Temp Pulse Resp BP Pulse Ox 97.4 F L 105 H 18 133/88 95 09/06/20 07:23 09/06/20 07:23 09/06/20 09:03 09/06/20 07:23 09/06/20 07:23 General appearance: Present: no acute distress, well-nourished - EENT Eyes: Present: PERRL, EOM intact - Neck Neck: Present: supple, normal ROM - Respiratory Respiratory effort: normal, labored Respiratory: bilateral: diminished, negative: rales, rhonchi - Cardiovascular Rhythm: regular Heart Sounds: Present: S1 & S2 - Extremities Extremities: no ischemia, No edema - Abdominal General gastrointestinal: soft, non-tender, non-distended, normal bowel sounds - Integumentary Integumentary: Present: clear, warm - Psychiatric Psychiatric: cooperative, other (Confused at times) - Neurologic Neurologic: moves all extremities Results - Labs CBC & Chem 7: 09/03/20 07:49 09/05/20 05:10 Labs: Laboratory Last Values WBC 9.9 K/mm3 (4.5-11.0) 09/03/20 07:49 RBC 3.41 M/mm3 (3.65-5.03) L 09/03/20 07:49 Hgb 10.3 gm/dl (10.1-14.3) 09/03/20 07:49 Hct 30.4 % (30.3-42.9) 09/03/20 07:49 MCV 89 fl (79-97) 09/03/20 07:49 MCH 30 pg (28-32) 09/03/20 07:49 MCHC 34 % (30-34) 09/03/20 07:49 RDW 16.2 % (13.2-15.2) H 09/03/20 07:49 Plt Count 292 K/mm3 (140-440) 09/03/20 07:49 Lymph % (Auto) 6.6 % (13.4-35.0) L 09/03/20 07:49 [place] % (Auto) 9.3 % (0.0-7.3) H 09/03/20 07:49 Eos % (Auto) 2.3 % (0.0-4.3) 09/03/20 07:49 Baso % (Auto) 0.5 % (0.0-1.8) 09/03/20 07:49 Lymph # (Auto) 0.7 K/mm3 (1.2-5.4) L 09/03/20 07:49 [place] # (Auto) 0.9 K/mm3 (0.0-0.8) H 09/03/20 07:49 Eos # (Auto) 0.2 K/mm3 (0.0-0.4) 09/03/20 07:49 Baso # (Auto) 0.0 K/mm3 (0.0-0.1) 09/03/20 07:49 Seg Neutrophils % 81.3 % (40.0-70.0) H 09/03/20 07:49 Seg Neutrophils # 8.0 K/mm3 (1.8-7.7) H 09/03/20 07:49 PT 19.2 Sec. (12.2-14.9) H 08/29/20 14:43 INR 1.57 (0.87-1.13) H 08/29/20 14:43 APTT 36.9 Sec. (24.2-36.6) H 08/29/20 14:43 Sodium 133 mmol/L (137-145) L 09/03/20 07:49 Potassium 3.7 mmol/L (3.6-5.0) 09/05/20 05:10 Chloride 90.9 mmol/L (98-107) L 09/03/20 07:49 Carbon Dioxide 32 mmol/L (22-30) H 09/03/20 07:49 Anion Gap 14 mmol/L 09/03/20 07:49 BUN 14 mg/dL (7-17) 09/03/20 07:49 Creatinine 0.3 mg/dL (0.6-1.2) L 09/03/20 07:49 Estimated GFR > 60 ml/min 09/03/20 07:49 BUN/Creatinine Ratio 47 % 09/03/20 07:49 Glucose 107 mg/dL (65-100) H 09/03/20 07:49 Calcium 8.3 mg/dL (8.4-10.2) L 09/03/20 07:49 Magnesium 2.20 mg/dL (1.7-2.3) 09/05/20 05:10 Total Creatine Kinase 102 units/L (30-135) 09/03/20 07:49 Urine Color Yellow (Yellow) 08/29/20 Unknown Urine Turbidity Clear (Clear) 08/29/20 Unknown Urine pH 6.0 (5.0-7.0) 08/29/20 Unknown Ur Specific [place] 1.014 (1.003-1.030) 08/29/20 Unknown Urine Protein <15 mg/dl mg/dL (Negative) 08/29/20 Unknown Urine Glucose (UA) Neg mg/dL (Negative) 08/29/20 Unknown Urine Ketones Tr mg/dL (Negative) 08/29/20 Unknown Urine Blood Neg (Negative) 08/29/20 Unknown Urine Nitrite Pos (Negative) 08/29/20 Unknown Urine Bilirubin Neg (Negative) 08/29/20 Unknown Urine Urobilinogen < 2.0 mg/dL (<2.0) 08/29/20 Unknown Ur Leukocyte Esterase Neg (Negative) 08/29/20 Unknown Urine WBC (Auto) 2.0 /HPF (0.0-6.0) 08/29/20 Unknown Urine RBC (Auto) 2.0 /HPF (0.0-6.0) 08/29/20 Unknown U Epithel Cells (Auto) 1.0 /HPF (0-13.0) 08/29/20 Unknown Lozano/IV: Voiding Method External Female Catheter Active Medications - Current Medications Current Medications: Generic Name Dose Route Start Last Admin Trade Name Freq PRN Reason Stop Dose Admin Acetaminophen 650 mg 08/29/20 16:01 Acetaminophen 325 Mg Tab PO Q4H PRN Pain MILD(1-3)/Fever >100.5/MCKEON Albuterol 2.5 mg 08/29/20 16:01 Albuterol 2.5 Mg/3 Ml Nebu IH Q4HRT PRN Shortness Of Breath Aspirin 81 mg 08/30/20 10:00 09/06/20 09:03 Aspirin Ec 81 Mg Tab PO 81 mg QDAY MAGNUS Administration Hydrochlorothiazide 25 mg 08/30/20 10:00 09/06/20 09:03 Hydrochlorothiazide 25 Mg Tab PO 25 mg DAILY MAGNUS Administration Hydromorphone HCl 0.5 mg 08/29/20 16:01 09/05/20 14:42 Hydromorphone 1 Mg/1 Ml Inj IV 0.5 mg Q3H PRN Administration Pain , Severe (7-10) Hydrophilic Ointment 1 applic 09/03/20 16:38 09/03/20 18:29 Lip Therapy Vaseline TP 1 applic DIRECT PRN Administration Dry Lips Sodium Chloride 1,000 mls @ 42 mls/hr 08/29/20 17:15 08/30/20 10:58 Nacl 0.9% 1000 Ml IV 42 mls/hr DIRECT MAGNUS Administration Latanoprost 1 drops 08/30/20 20:00 09/05/20 21:53 Latanoprost 0.005% Ophth Soln 2.5 Ml OU 1 drops 2000 MAGNUS Administration Lisinopril 40 mg 08/30/20 10:00 09/06/20 09:03 Lisinopril 40 Mg Tab PO 40 mg DAILY MAGNUS Administration Metoprolol Succinate 50 mg 08/30/20 10:00 09/06/20 09:03 Metoprolol Succinate Xl 50 Mg Tab PO 50 mg QDAY MAGNUS Administration Ondansetron HCl 4 mg 08/29/20 16:01 08/30/20 13:22 Ondansetron 4 Mg/2 Ml Inj IV 4 mg Q8H PRN Administration Nausea And Vomiting Oxycodone/Acetaminophen 1 tab 08/29/20 16:01 09/06/20 09:03 Oxycodone /Acetaminophen 5-325mg Tab PO 1 tab Q6H PRN Administration Pain, Moderate (4-6) Pravastatin Sodium 20 mg 08/29/20 22:00 09/05/20 21:53 Pravastatin 20 Mg Tab PO 20 mg QHS MAGNUS Administration Rivaroxaban 20 mg 08/30/20 10:00 09/06/20 09:03 Rivaroxaban 20 Mg Tab PO 20 mg QDAY MAGNUS Administration Sodium Chloride 10 ml 08/29/20 22:00 09/06/20 09:03 Sodium Chloride 0.9% 10 Ml Flush Syringe IV 10 ml BID MAGNUS Administration Sodium Chloride 10 ml 08/29/20 16:01 Sodium Chloride 0.9% 10 Ml Flush Syringe IV PRN PRN LINE FLUSH
[2020-09-06] MEDS: LATANOPROST 0.005% OPHTH SOLN 2.5 ML OU SCH (20:48)
[2020-09-06] MEDS: PRAVASTATIN 20 MG TAB PO SCH (22:28)
[2020-09-07 05:15] LABS: Blood Urea Nitrogen 16 mg/dL (7-17); Calcium 8.4 mg/dL (8.4-10.2); Hemolysis Index 5
[2020-09-07 05:21] LABS: BUN/Creatinine Ratio 32
[2020-09-07] MEDS: oxyCODONE /ACETAMINOPHEN 5-325MG TAB PO PRN ×3 (05:29→21:24)
[2020-09-07] MEDS: ASPIRIN EC 81 MG TAB PO SCH (09:45)
[2020-09-07] MEDS: LISINOPRIL 40 MG TAB PO SCH (09:45)
[2020-09-07] MEDS: RIVAROXABAN 20 MG TAB PO SCH (09:46)
[2020-09-07] MEDS: METOPROLOL SUCCINATE XL 50 MG TAB PO SCH (09:46)
[2020-09-07] MEDS: hydroCHLOROthiazide 25 MG TAB PO SCH (09:46)
--- NOTE | 2020-09-07 18:18 | Progress Note ---
Assessment and Plan Assessment and plan: --Constipation; relieved Current Visit: Yes Status: Chronic Plenty oral fluids, milk of magnesia as needed Patient had good bowel movement Continue stool softeners as needed --History of fall; Current Visit: Yes Status: Acute History of recurrent falls, fall precautions PT and OT, rehabilitation -- Rt Pelvic Fracture/right inferior pubic ramus Current Visit: Yes Status: Acute Orthopedic surgery evaluated no surgical intervention stable pelvic fracture, PT and gait training PT recommend subacute rehab/SNF placement --Fracture of superior ramus of right pubis Current Visit: Yes Status: Acute stable pelvic fracture, Gait training and PT Ortho evaluated, no intervention needed --General debility Current Visit: Yes Status: Acute Advanced age , fall fracture bilateral right pubic rami Pain management , PT evaluated, gait training in process recommend Subacute rehab placement --Uncontrolled pain Current Visit: Yes Status: Acute Pain control as per pain protocol, nursing assessment as per routine. -- Paroxysmal atrial fibrillation Current Visit: Yes Status: Acute Continue therapeutic anticoagulation Xarelto, High risk with recurrent falls, check with cardiology if needed -- DVT prophylaxis Current Visit: Yes Status: Acute . Patient is on Xarelto --Full CODE STATUS ; --Advance care planning Current Visit: Yes Status: Acute . Plan of care reviewed with the patient, and her nurse, I discussed with patient's [id number] PT recommend acute rehab placement. Awaiting subacute/SNF placement Case management assisting with discharge planning Closely monitor the patient and adjust the management as needed Brief history and hospital course; very frail 85-year-old elderly female patient was admitted through emergency room with history of recurrent falls General debility Imaging studies consistent with right pelvic fracture inferior and superior ramus, patient was symptomatically managed evaluated by orthopedic surgeon, no indication for surgical intervention, advised physical therapy and gait training, PT recommended acute inpatient rehab/subacute rehab DC planning per case management, awaiting placement. Patient has chronic constipation, advised milk of magnesia last night , if no improvement will give another dose of milk of magnesia and Dulcolax today .if it does not work consider enema , Daily Hospital course; 09/04/2020; patient dividing subacute rehab placement Complaints of constipation, advised milk of magnesia PT OT as tolerated I discussed in detail patient's condition and treatment plan with patient's [id number] Ms Best 09/05/2020; continue stool softeners If no improvement consider enema Awaiting placement subacute rehab 09/06/2020; awaiting subacute rehab placement Patient has no new complaints Had a bowel movement yesterday 09/07/2020; patient tolerating physical therapy Clinically stable, awaiting subacute rehab placement DC planning per case management History Interval history: I seen and examined the patient at the bedside this morning during morning rounds Patient's chart and medications reviewed Patient is working with the physical therapist Complains of vague hip pain Vital signs reviewed Awaiting subacute rehab placement Hospitalist Physical - Constitutional Vitals: Temp Pulse Resp BP Pulse Ox 98.3 F 77 18 138/85 95 09/07/20 16:19 09/07/20 16:19 09/07/20 16:19 09/07/20 16:19 09/07/20 16:19 General appearance: Present: no acute distress, well-nourished - EENT Eyes: Present: PERRL, EOM intact - Neck Neck: Present: supple, normal ROM - Respiratory Respiratory effort: normal Respiratory: bilateral: diminished, negative: rales, rhonchi, wheezing - Cardiovascular Rhythm: regular Heart Sounds: Present: S1 & S2 - Extremities Extremities: no ischemia, No edema - Abdominal General gastrointestinal: soft, non-tender, non-distended, normal bowel sounds - Integumentary Integumentary: Present: clear, warm - Psychiatric Psychiatric: appropriate mood/affect, cooperative - Neurologic Neurologic: CNII-XII intact, moves all extremities Results - Labs CBC & Chem 7: 09/03/20 07:49 09/07/20 04:20 Labs: Laboratory Last Values WBC 9.9 K/mm3 (4.5-11.0) 09/03/20 07:49 RBC 3.41 M/mm3 (3.65-5.03) L 09/03/20 07:49 Hgb 10.3 gm/dl (10.1-14.3) 09/03/20 07:49 Hct 30.4 % (30.3-42.9) 09/03/20 07:49 MCV 89 fl (79-97) 09/03/20 07:49 MCH 30 pg (28-32) 09/03/20 07:49 MCHC 34 % (30-34) 09/03/20 07:49 RDW 16.2 % (13.2-15.2) H 09/03/20 07:49 Plt Count 292 K/mm3 (140-440) 09/03/20 07:49 Lymph % (Auto) 6.6 % (13.4-35.0) L 09/03/20 07:49 [place] % (Auto) 9.3 % (0.0-7.3) H 09/03/20 07:49 Eos % (Auto) 2.3 % (0.0-4.3) 09/03/20 07:49 Baso % (Auto) 0.5 % (0.0-1.8) 09/03/20 07:49 Lymph # (Auto) 0.7 K/mm3 (1.2-5.4) L 09/03/20 07:49 [place] # (Auto) 0.9 K/mm3 (0.0-0.8) H 09/03/20 07:49 Eos # (Auto) 0.2 K/mm3 (0.0-0.4) 09/03/20 07:49 Baso # (Auto) 0.0 K/mm3 (0.0-0.1) 09/03/20 07:49 Seg Neutrophils % 81.3 % (40.0-70.0) H 09/03/20 07:49 Seg Neutrophils # 8.0 K/mm3 (1.8-7.7) H 09/03/20 07:49 PT 19.2 Sec. (12.2-14.9) H 08/29/20 14:43 INR 1.57 (0.87-1.13) H 08/29/20 14:43 APTT 36.9 Sec. (24.2-36.6) H 08/29/20 14:43 Sodium 130 mmol/L (137-145) L 09/07/20 04:20 Potassium 3.7 mmol/L (3.6-5.0) 09/07/20 04:20 Chloride 89.4 mmol/L (98-107) L 09/07/20 04:20 Carbon Dioxide 34 mmol/L (22-30) H 09/07/20 04:20 Anion Gap 10 mmol/L 09/07/20 04:20 BUN 16 mg/dL (7-17) 09/07/20 04:20 Creatinine 0.5 mg/dL (0.6-1.2) L D 09/07/20 04:20 Estimated GFR > 60 ml/min 09/07/20 04:20 BUN/Creatinine Ratio 32 % 09/07/20 04:20 Glucose 97 mg/dL (65-100) 09/07/20 04:20 Calcium 8.4 mg/dL (8.4-10.2) 09/07/20 04:20 Phosphorus 3.50 mg/dL (2.5-4.5) 09/07/20 04:20 Magnesium 2.40 mg/dL (1.7-2.3) H 09/07/20 04:20 Total Creatine Kinase 102 units/L (30-135) 09/03/20 07:49 Urine Color Yellow (Yellow) 08/29/20 Unknown Urine Turbidity Clear (Clear) 08/29/20 Unknown Urine pH 6.0 (5.0-7.0) 08/29/20 Unknown Ur Specific [place] 1.014 (1.003-1.030) 08/29/20 Unknown Urine Protein <15 mg/dl mg/dL (Negative) 08/29/20 Unknown Urine Glucose (UA) Neg mg/dL (Negative) 08/29/20 Unknown Urine Ketones Tr mg/dL (Negative) 08/29/20 Unknown Urine Blood Neg (Negative) 08/29/20 Unknown Urine Nitrite Pos (Negative) 08/29/20 Unknown Urine Bilirubin Neg (Negative) 08/29/20 Unknown Urine Urobilinogen < 2.0 mg/dL (<2.0) 08/29/20 Unknown Ur Leukocyte Esterase Neg (Negative) 08/29/20 Unknown Urine WBC (Auto) 2.0 /HPF (0.0-6.0) 08/29/20 Unknown Urine RBC (Auto) 2.0 /HPF (0.0-6.0) 08/29/20 Unknown U Epithel Cells (Auto) 1.0 /HPF (0-13.0) 08/29/20 Unknown Lozano/IV: Voiding Method External Female Catheter Active Medications - Current Medications Current Medications: Generic Name Dose Route Start Last Admin Trade Name Freq PRN Reason Stop Dose Admin Acetaminophen 650 mg 08/29/20 16:01 Acetaminophen 325 Mg Tab PO Q4H PRN Pain MILD(1-3)/Fever >100.5/MCKEON Albuterol 2.5 mg 08/29/20 16:01 Albuterol 2.5 Mg/3 Ml Nebu IH Q4HRT PRN Shortness Of Breath Aspirin 81 mg 08/30/20 10:00 09/07/20 09:45 Aspirin Ec 81 Mg Tab PO 81 mg QDAY MAGNUS Administration Hydrochlorothiazide 25 mg 08/30/20 10:00 09/07/20 09:46 Hydrochlorothiazide 25 Mg Tab PO 25 mg DAILY MAGNUS Administration Hydromorphone HCl 0.5 mg 08/29/20 16:01 09/05/20 14:42 Hydromorphone 1 Mg/1 Ml Inj IV 0.5 mg Q3H PRN Administration Pain , Severe (7-10) Hydrophilic Ointment 1 applic 09/03/20 16:38 09/03/20 18:29 Lip Therapy Vaseline TP 1 applic DIRECT PRN Administration Dry Lips Sodium Chloride 1,000 mls @ 42 mls/hr 08/29/20 17:15 08/30/20 10:58 Nacl 0.9% 1000 Ml IV 42 mls/hr DIRECT MAGNUS Administration Latanoprost 1 drops 08/30/20 20:00 09/06/20 20:48 Latanoprost 0.005% Ophth Soln 2.5 Ml OU 1 drops 1999 MAGNUS Administration Lisinopril 40 mg 08/30/20 10:00 09/07/20 09:45 Lisinopril 40 Mg Tab PO 40 mg DAILY MAGNUS Administration Metoprolol Succinate 50 mg 08/30/20 10:00 09/07/20 09:46 Metoprolol Succinate Xl 50 Mg Tab PO 50 mg QDAY MAGNUS Administration Ondansetron HCl 4 mg 08/29/20 16:01 08/30/20 13:22 Ondansetron 4 Mg/2 Ml Inj IV 4 mg Q8H PRN Administration Nausea And Vomiting Oxycodone/Acetaminophen 1 tab 08/29/20 16:01 09/07/20 13:25 Oxycodone /Acetaminophen 5-325mg Tab PO 1 tab Q6H PRN Administration Pain, Moderate (4-6) Pravastatin Sodium 20 mg 08/29/20 22:00 09/06/20 22:28 Pravastatin 20 Mg Tab PO 20 mg QHS MAGNUS Administration Rivaroxaban 20 mg 08/30/20 10:00 09/07/20 09:46 Rivaroxaban 20 Mg Tab PO 20 mg QDAY MAGNUS Administration Sodium Chloride 10 ml 08/29/20 22:00 09/07/20 09:56 Sodium Chloride 0.9% 10 Ml Flush Syringe IV 10 ml BID MAGNUS Administration Sodium Chloride 10 ml 08/29/20 16:01 Sodium Chloride 0.9% 10 Ml Flush Syringe IV PRN PRN LINE FLUSH Nutrition/Malnutrition Assess - Dietary Evaluation Nutrition/Malnutrition Findings: Nutrition Notes Start: 09/07/20 11:33 Freq: Status: Active Protocol: Document 09/07/20 11:33 JAMEY (Rec: 09/07/20 11:39 NHALL [email or web address]) Nutrition Notes Need for Assessment generated from: LOS Initial or Follow up Assessment Other Pertinent Diagnosis (R) pelvic fx, constipation, debility Current Diet Cardiac Labs/Tests Na 130 Mg 2.4 Pertinent Medications Reviewed Height 5 ft 10 in Weight 78.6 kg [place] Body Weight (kg) 68.18 BMI 24.8 Weight Status Appropriate Subjective/Other Information Pt screened for LOS. No surgical intervention needed at this time. She has consumed 50% of meals since admission. Percent of energy/protein needs met: 71% energy 54% pro Burn Absent Trauma Absent Current % PO Fair (50-74%) Minimum of two criteria No #1 Nutrition Diagnosis Inadequate protein-energy intake Etiology advanced age, debility, recent hip fx As Evidenced by Signs and Symptoms PO intake meeting <75% energy and pro needs Is patient on ventilator? No Is Patient Ambulatory and/or Out of Bed No REE-([facility]-confined to bed) 4989.196 Calculation Used for Recommendations [facility] Additional Notes Pro needs 1-1.2g/k-94g/ day Fluid needs 1ml/kcal Nutrition Intervention Change Diet Order: Continue current diet order Add Supplement/Snack (indicate name/kcal Ensure Enlive BID /protein ) Provides kCal: 700 Provides Protein (gm) 40 Goal #1 PO intake of meals plus ONS to meet at least 75% energy and pro needs Anticipated Discharge Needs: None identified at this time Follow-Up By: 09/10/20 Additional Comments F/U: intakes (meals, ONS)
[2020-09-07] MEDS: PRAVASTATIN 20 MG TAB PO SCH (21:24)
[2020-09-07] MEDS: LATANOPROST 0.005% OPHTH SOLN 2.5 ML OU SCH (23:20)
[2020-09-08] MEDS: hydroCHLOROthiazide 25 MG TAB PO SCH (10:07)
[2020-09-08] MEDS: oxyCODONE /ACETAMINOPHEN 5-325MG TAB PO PRN ×2 (10:07→18:51)
[2020-09-08] MEDS: ASPIRIN EC 81 MG TAB PO SCH (10:08)
[2020-09-08] MEDS: METOPROLOL SUCCINATE XL 50 MG TAB PO SCH (10:08)
[2020-09-08] MEDS: LISINOPRIL 40 MG TAB PO SCH (10:08)
[2020-09-08] MEDS: RIVAROXABAN 20 MG TAB PO SCH (10:09)
--- NOTE | 2020-09-08 12:13 | Progress Note ---
Assessment and Plan Assessment and plan: --Constipation; relieved Current Visit: Yes Status: Chronic Plenty oral fluids, milk of magnesia as needed Patient had good bowel movement Continue stool softeners as needed --Hyponatremia; Current Visit: Yes Status: Acute Closely monitor electrolytes, normal saline --History of fall; Current Visit: Yes Status: Acute History of recurrent falls, fall precautions PT and OT, rehabilitation -- Rt Pelvic Fracture/right inferior pubic ramus Current Visit: Yes Status: Acute Orthopedic surgery evaluated no surgical intervention stable pelvic fracture, PT and gait training PT recommend subacute rehab/SNF placement --Fracture of superior ramus of right pubis Current Visit: Yes Status: Acute stable pelvic fracture, Gait training and PT Ortho evaluated, no intervention needed --General debility Current Visit: Yes Status: Acute Advanced age , fall fracture bilateral right pubic rami Pain management , PT evaluated, gait training in process recommend Subacute rehab placement --Uncontrolled pain Current Visit: Yes Status: Acute Pain control as per pain protocol, nursing assessment as per routine. -- Paroxysmal atrial fibrillation Current Visit: Yes Status: Acute Continue therapeutic anticoagulation Xarelto, High risk with recurrent falls, check with cardiology if needed -- DVT prophylaxis Current Visit: Yes Status: Acute . Patient is on Xarelto --Full CODE STATUS ; --Advance care planning Current Visit: Yes Status: Acute . Plan of care reviewed with the patient, and her nurse, I discussed with patient's [id number] PT recommend acute rehab placement. Awaiting subacute/SNF placement Case management assisting with discharge planning Closely monitor the patient and adjust the management as needed Brief history and hospital course; very frail 85-year-old elderly female patient was admitted through emergency felisa m with history of recurrent falls General debility Imaging studies consistent with right pelvic fracture inferior and superior ramus, patient was symptomatically managed evaluated by orthopedic surgeon, no indication for surgical intervention, advised physical therapy and gait training, PT recommended acute inpatient rehab/subacute rehab DC planning per case management, awaiting placement. Patient has chronic constipation, advised milk of magnesia last night , if no improvement will give another dose of milk of magnesia and Dulcolax today .if it does not work consider enema , Daily Hospital course; 09/04/2020; patient dividing subacute rehab placement Complaints of constipation, advised milk of magnesia PT OT as tolerated I discussed in detail patient's condition and treatment plan with patient's [id number] Ms Best 09/05/2020; continue stool softeners If no improvement consider enema Awaiting placement subacute rehab 09/06/2020; awaiting subacute rehab placement Patient has no new complaints Had a bowel movement yesterday 09/07/2020; patient tolerating physical therapy Clinically stable, awaiting subacute rehab placement DC planning per case management 09/08/2020; awaiting SNF placement History Interval history: I seen and examined the patient at the bedside this afternoon patient's chart and medications reviewed Patient just finished her physical therapy and tired No new overnight events reported by the nursing staff Vital signs stable Hospitalist Physical - Constitutional Vitals: Temp Pulse Resp BP Pulse Ox 97.5 F L 107 H 16 154/83 96 09/08/20 11:37 09/08/20 11:37 09/08/20 11:37 09/08/20 11:37 09/08/20 11:37 General appearance: Present: no acute distress, well-nourished - EENT Eyes: Present: PERRL, EOM intact - Neck Neck: Present: supple, normal ROM - Respiratory Respiratory effort: normal Respiratory: bilateral: diminished, negative: rales, rhonchi, wheezing - Cardiovascular Rhythm: regular Heart Sounds: Present: S1 & S2 - Extremities Extremities: no ischemia, No edema - Abdominal General gastrointestinal: soft, non-tender, non-distended, normal bowel sounds - Integumentary Integumentary: Present: clear, warm - Psychiatric Psychiatric: appropriate mood/affect, cooperative - Neurologic Neurologic: CNII-XII intact, moves all extremities Results - Labs CBC & Chem 7: 09/03/20 07:49 09/07/20 04:20 Labs: Laboratory Last Values WBC 9.9 K/mm3 (4.5-11.0) 09/03/20 07:49 RBC 3.41 M/mm3 (3.65-5.03) L 09/03/20 07:49 Hgb 10.3 gm/dl (10.1-14.3) 09/03/20 07:49 Hct 30.4 % (30.3-42.9) 09/03/20 07:49 MCV 89 fl (79-97) 09/03/20 07:49 MCH 30 pg (28-32) 09/03/20 07:49 MCHC 34 % (30-34) 09/03/20 07:49 RDW 16.2 % (13.2-15.2) H 09/03/20 07:49 Plt Count 292 K/mm3 (140-440) 09/03/20 07:49 Lymph % (Auto) 6.6 % (13.4-35.0) L 09/03/20 07:49 Fajardo % (Auto) 9.3 % (0.0-7.3) H 09/03/20 07:49 Eos % (Auto) 2.3 % (0.0-4.3) 09/03/20 07:49 Baso % (Auto) 0.5 % (0.0-1.8) 09/03/20 07:49 Lymph # (Auto) 0.7 K/mm3 (1.2-5.4) L 09/03/20 07:49 Fajardo # (Auto) 0.9 K/mm3 (0.0-0.8) H 09/03/20 07:49 Eos # (Auto) 0.2 K/mm3 (0.0-0.4) 09/03/20 07:49 Baso # (Auto) 0.0 K/mm3 (0.0-0.1) 09/03/20 07:49 Seg Neutrophils % 81.3 % (40.0-70.0) H 09/03/20 07:49 Seg Neutrophils # 8.0 K/mm3 (1.8-7.7) H 09/03/20 07:49 PT 19.2 Sec. (12.2-14.9) H 08/29/20 14:43 INR 1.57 (0.87-1.13) H 08/29/20 14:43 APTT 36.9 Sec. (24.2-36.6) H 08/29/20 14:43 Sodium 130 mmol/L (137-145) L 09/07/20 04:20 Potassium 3.7 mmol/L (3.6-5.0) 09/07/20 04:20 Chloride 89.4 mmol/L (98-107) L 09/07/20 04:20 Carbon Dioxide 34 mmol/L (22-30) H 09/07/20 04:20 Anion Gap 10 mmol/L 09/07/20 04:20 BUN 16 mg/dL (7-17) 09/07/20 04:20 Creatinine 0.5 mg/dL (0.6-1.2) L D 09/07/20 04:20 Estimated GFR > 60 ml/min 09/07/20 04:20 BUN/Creatinine Ratio 32 % 09/07/20 04:20 Glucose 97 mg/dL (65-100) 09/07/20 04:20 Calcium 8.4 mg/dL (8.4-10.2) 09/07/20 04:20 Phosphorus 3.50 mg/dL (2.5-4.5) 09/07/20 04:20 Magnesium 2.40 mg/dL (1.7-2.3) H 09/07/20 04:20 Total Creatine Kinase 102 units/L (30-135) 09/03/20 07:49 Urine Color Yellow (Yellow) 08/29/20 Unknown Urine Turbidity Clear (Clear) 08/29/20 Unknown Urine pH 6.0 (5.0-7.0) 08/29/20 Unknown Ur Specific Hewlett 1.014 (1.003-1.030) 08/29/20 Unknown Urine Protein <15 mg/dl mg/dL (Negative) 08/29/20 Unknown Urine Glucose (UA) Neg mg/dL (Negative) 08/29/20 Unknown Urine Ketones Tr mg/dL (Negative) 08/29/20 Unknown Urine Blood Neg (Negative) 08/29/20 Unknown Urine Nitrite Pos (Negative) 08/29/20 Unknown Urine Bilirubin Neg (Negative) 08/29/20 Unknown Urine Urobilinogen < 2.0 mg/dL (<2.0) 08/29/20 Unknown Ur Leukocyte Esterase Neg (Negative) 08/29/20 Unknown Urine WBC (Auto) 2.0 /HPF (0.0-6.0) 08/29/20 Unknown Urine RBC (Auto) 2.0 /HPF (0.0-6.0) 08/29/20 Unknown U Epithel Cells (Auto) 1.0 /HPF (0-13.0) 08/29/20 Unknown Lozano/IV: Voiding Method External Female Catheter Active Medications - Current Medications Current Medications: Generic Name Dose Route Start Last Admin Trade Name Freq PRN Reason Stop Dose Admin Acetaminophen 650 mg 08/29/20 16:01 Acetaminophen 325 Mg Tab PO Q4H PRN Pain MILD(1-3)/Fever >100.5/MCKEON Albuterol 2.5 mg 08/29/20 16:01 Albuterol 2.5 Mg/3 Ml Nebu IH Q4HRT PRN Shortness Of Breath Aspirin 81 mg 08/30/20 10:00 09/08/20 10:08 Aspirin Ec 81 Mg Tab PO 81 mg QDAY MAGNUS Administration Hydrochlorothiazide 25 mg 08/30/20 10:00 09/08/20 10:07 Hydrochlorothiazide 25 Mg Tab PO 25 mg DAILY MAGNUS Administration Hydromorphone HCl 0.5 mg 08/29/20 16:01 09/05/20 14:42 Hydromorphone 1 Mg/1 Ml Inj IV 0.5 mg Q3H PRN Administration Pain , Severe (7-10) Hydrophilic Ointment 1 applic 09/03/20 16:38 09/03/20 18:29 Lip Therapy Vaseline TP 1 applic DIRECT PRN Administration Dry Lips Sodium Chloride 1,000 mls @ 42 mls/hr 08/29/20 17:15 08/30/20 10:58 Nacl 0.9% 1000 Ml IV 42 mls/hr DIRECT MAGNUS Administration Latanoprost 1 drops 08/30/20 20:00 09/07/20 23:20 Latanoprost 0.005% Ophth Soln 2.5 Ml OU 1 drops 2000 MAGNUS Administration Lisinopril 40 mg 08/30/20 10:00 09/08/20 10:08 Lisinopril 40 Mg Tab PO 40 mg DAILY MAGNUS Administration Metoprolol Succinate 50 mg 08/30/20 10:00 09/08/20 10:08 Metoprolol Succinate Xl 50 Mg Tab PO 50 mg QDAY MAGNUS Administration Ondansetron HCl 4 mg 08/29/20 16:01 08/30/20 13:22 Ondansetron 4 Mg/2 Ml Inj IV 4 mg Q8H PRN Administration Nausea And Vomiting Oxycodone/Acetaminophen 1 tab 08/29/20 16:01 09/08/20 10:07 Oxycodone /Acetaminophen 5-325mg Tab PO 1 tab Q6H PRN Administration Pain, Moderate (4-6) Pravastatin Sodium 20 mg 08/29/20 22:00 09/07/20 21:24 Pravastatin 20 Mg Tab PO 20 mg QHS MAGNUS Administration Rivaroxaban 20 mg 08/30/20 10:00 09/08/20 10:09 Rivaroxaban 20 Mg Tab PO 20 mg QDAY MAGNUS Administration Sodium Chloride 10 ml 08/29/20 22:00 09/08/20 10:10 Sodium Chloride 0.9% 10 Ml Flush Syringe IV 10 ml BID MAGNUS Administration Sodium Chloride 10 ml 08/29/20 16:01 09/08/20 10:10 Sodium Chloride 0.9% 10 Ml Flush Syringe IV 10 ml PRN PRN Administration LINE FLUSH Nutrition/Malnutrition Assess - Dietary Evaluation Nutrition/Malnutrition Findings: Nutrition Notes Start: 09/07/20 11:33 Freq: Status: Active Protocol: Document 09/07/20 11:33 JAMEY (Rec: 09/07/20 11:39 JAMEY [id number]) Nutrition Notes Need for Assessment generated from: LOS Initial or Follow up Assessment Other Pertinent Diagnosis (R) pelvic fx, constipation, debility Current Diet Cardiac Labs/Tests Na 130 Mg 2.4 Pertinent Medications Reviewed Height 5 ft 10 in Weight 78.6 kg Salome Body Weight (kg) 68.18 BMI 24.8 Weight Status Appropriate Subjective/Other Information Pt screened for LOS. No surgical intervention needed at this time. She has consumed 50% of meals since admission. Percent of energy/protein needs met: 71% energy 54% pro Burn Absent Trauma Absent Current % PO Fair (50-74%) Minimum of two criteria No #1 Nutrition Diagnosis Inadequate protein-energy intake Etiology advanced age, debility, recent hip fx As Evidenced by Signs and Symptoms PO intake meeting <75% energy and pro needs Is patient on ventilator? No Is Patient Ambulatory and/or Out of Bed No [facility] [phone] Calculation Used for Recommendations [facility] Additional Notes Pro needs 1-1.2g/k-94g/ day Fluid needs 1ml/kcal Nutrition Intervention Change Diet Order: Continue current diet order Add Supplement/Snack (indicate name/kcal Ensure Enlive BID /protein ) Provides kCal: 700 Provides Protein (gm) 40 Goal #1 PO intake of meals plus ONS to meet at least 75% energy and pro needs Anticipated Discharge Needs: None identified at this time Follow-Up By: 09/10/20 Additional Comments F/U: intakes (meals, ONS)
[2020-09-08] MEDS: SODIUM CHLORIDE 1 GM TAB PO SCH ×2 (13:45→21:34)
[2020-09-08] MEDS: PRAVASTATIN 20 MG TAB PO SCH (21:34)
[2020-09-08] MEDS: LATANOPROST 0.005% OPHTH SOLN 2.5 ML OU SCH (21:35)
[2020-09-09] MEDS: oxyCODONE /ACETAMINOPHEN 5-325MG TAB PO PRN ×2 (02:24→09:08)
[2020-09-09] MEDS: ONDANSETRON 4 MG/2 ML INJ IV PRN (08:08)
[2020-09-09] MEDS: ASPIRIN EC 81 MG TAB PO SCH (09:09)
[2020-09-09] MEDS: hydroCHLOROthiazide 25 MG TAB PO SCH (09:09)
[2020-09-09] MEDS: METOPROLOL SUCCINATE XL 50 MG TAB PO SCH (09:09)
[2020-09-09] MEDS: LISINOPRIL 40 MG TAB PO SCH (09:09)
[2020-09-09] MEDS: SODIUM CHLORIDE 1 GM TAB PO SCH (09:09)
[2020-09-09] MEDS: RIVAROXABAN 20 MG TAB PO SCH (09:09)
[2020-09-09 11:06] VITALS: BP 132/67
--- NOTE | 2020-09-09 11:13 | Discharge Summary ---
Providers - Providers Date of Admission: 08/31/20 12:44 Date of discharge: 09/09/20 Attending physician: RITO SCHAFFER 08/29/20 16:05 Physical Therapy Evaluation and Treat [CONS] Routine Comment: Reason For Exam: weakness 08/29/20 16:50 Consult to Physician [CONS] Stat Comment: Consulting Provider: ERICH COREA Physician Instructions: Reason For Exam: Pubic rami fracture 08/31/20 15:04 Occupational Therapy Evaluate and Treat [CONS] Routine Comment: Reason For Exam: Pelvic fracture 09/01/20 20:12 Consult Acute Rehabilitation [CONS] Routine Consulting Provider: PHYLLIS MATOS III Physician Instructions: Reason For Exam: IRU Evaluation Primary care physician: ABALONE SHELLER Hospitalization Condition: Stable Hospital course: Brief history and hospital course; very frail 85-year-old elderly female patient was admitted through emergency room with history of recurrent falls General debility Imaging studies consistent with right pelvic fracture inferior and superior ramus, patient was symptomatically managed evaluated by orthopedic surgeon, no indication for surgical intervention, advised physical therapy and gait training, PT recommended acute inpatient rehab/subacute rehab DC planning per case management, awaiting placement.Patient has chronic constipation, advised milk of magnesia last night , if no improvement will give another dose of milk of magnesia and Dulcolax today .if it does not work consider enema , Discharge diagnosis --Constipation; relieved Current Visit: Yes Status: Chronic Plenty oral fluids, milk of magnesia as needed Patient had good bowel movement Continue stool softeners as needed --Hyponatremia; Current Visit: Yes Status: Acute Closely monitor electrolytes, normal saline --History of fall; Current Visit: Yes Status: Acute History of recurrent falls, fall precautions PT and OT, rehabilitation -- Rt Pelvic Fracture/right inferior pubic ramus Current Visit: Yes Status: Acute Orthopedic surgery evaluated no surgical intervention stable pelvic fracture, PT and gait training PT recommend subacute rehab/SNF placement --Fracture of superior ramus of right pubis Current Visit: Yes Status: Acute stable pelvic fracture, Gait training and PT Ortho evaluated, no intervention needed --General debility Current Visit: Yes Status: Acute Advanced age , fall fracture bilateral right pubic rami Pain management , PT evaluated, gait training in process recommend Subacute rehab placement --Uncontrolled pain Current Visit: Yes Status: Acute Pain control as per pain protocol, nursing assessment as per routine. -- Paroxysmal atrial fibrillation Current Visit: Yes Status: Acute Continue therapeutic anticoagulation Xarelto, High risk with recurrent falls, check with cardiology if needed -- DVT prophylaxis Current Visit: Yes Status: Acute . Patient is on Xarelto --Full CODE STATUS ; --Advance care planning Current Visit: Yes Status: Acute . Plan of care reviewed with the patient, and her nurse, I discussed with patient's [id number] PT recommend acute rehab placement. Awaiting subacute/SNF placement Case management assisting with discharge planning Closely monitor the patient and adjust the management as needed Disposition: DC/[place]-06 HOME UNDER HOME [facility] Time spent for discharge: 35 min Exam - Constitutional Vitals: Temp Pulse Resp BP Pulse Ox 97.7 F 71 20 132/67 96 09/09/20 10:56 09/09/20 10:56 09/09/20 10:56 09/09/20 10:56 09/09/20 10:56 Plan Additional Instructions: Fall precautions. Home physical therapy and Occupational Therapy. If you have worsening symptoms contact MD or go to the nearest emergency room as needed Follow up with: PRIMARY CARE, [Primary Care Provider] - 3-5 Days ERICH COREA MD [Staff Physician] - 14 Days Prescriptions: Docusate Sodium [Colace] 100 mg PO BID PRN #30 capsule PRN Reason: Constipation oxyCODONE /ACETAMINOPHEN [Percocet 5/325 mg] 1 tab PO Q8H PRN #20 tablet PRN Reason: Pain, Moderate (4-6) Sodium Chloride 1 gm PO BID #6 tablet
== END 2020-09-09 12:45 | disposition home health service (06) | DRG 536 ==
LOC: ED 13:28 → 3B-SURG 16:01 → OBSVTOIN 08-31 12:44
PROVIDERS: ADMIT Internal Medicine; ATTEND Internal Medicine
DX: S32.591A Other specified fracture of right pubis, initial encounter for closed fracture (principal); E87.1 Hypo-osmolality and hyponatremia; S32.599A Other specified fracture of unspecified pubis, initial encounter for closed fracture; R52 Pain, unspecified; S32.511A Fracture of superior rim of right pubis, initial encounter for closed fracture; R53.81 Other malaise; I48.91 Unspecified atrial fibrillation; I48.0 Paroxysmal atrial fibrillation; W01.0XXA Fall on same level from slipping, tripping and stumbling without subsequent striking against object, initial encounter; K21.9 Gastro-esophageal reflux disease without esophagitis; M19.90 Unspecified osteoarthritis, unspecified site; K59.00 Constipation, unspecified; Z79.899 Other long term (current) drug therapy; Z79.891 Long term (current) use of opiate analgesic; Z79.01 Long term (current) use of anticoagulants; Z79.82 Long term (current) use of aspirin; Y93.89 Activity, other specified; Y92.89 Other specified places as the place of occurrence of the external cause; Y99.8 Other external cause status; I25.2 Old myocardial infarction; Z63.4 Disappearance and death of family member; Z82.49 Family history of ischemic heart disease and other diseases of the circulatory system
CPT/HCPCS: 36415; 80048; 81001; 82550; 83735; 84100; 84132; 85025; 85610; 85730; 96365; 96375; G0378; A9270-GY; J0360; J0696; J1170; J2270; J2405; J7030; J7050